=== PATIENT | male | born 1945 | race Caucasian/White ===

== ENCOUNTER 2018-08-16 05:45 | Outpatient (CLI) | payer MEDICARE, OTHER ==
[~2018-08-16] VITALS: Ht 177.8 cm; Wt 90.7 kg
== END 2018-08-16 12:12 | disposition home or self-care (01) ==
LOC: PREOP 05:45
PROVIDERS: ATTEND Surgery
DX: Z01.818 Encounter for other preprocedural examination (principal)

== ENCOUNTER 2018-08-18 07:50 | Day surgery (SDC) | payer MEDICARE, OTHER ==
[~2018-08-18] VITALS: Ht 177.8 cm; Wt 90.7 kg
--- OUTSIDE RECORDS SUMMARY | 2018-08-18 07:54 | XMS REPORT | CCD ---
Author Author Lou Hidalgo Organization [facility] Address [address] [place] [address] Phone Care Team Providers Care Drafter Civil (Cad) Name Role Phone PP Unavailable CCM Unavailable Summary Purpose Interface Exchange Insurance Providers Payer name Policy type / Coverage type Covered constitution party ID Effective Begin Date Effective End Date WPS Medicare Part B Medicare Part B [id number] Unknown Unknown [employer] Medicare Part B [id number] Unknown Unknown Family history Mother Diagnosis Age At Onset Breast cancer Unknown Arthritis Unknown Father Diagnosis Age At Onset Emphysema Unknown Arthritis Unknown Social History Social History Element Codes Description Effective Dates Marital status Unknown Kristyn 11/13/2015 Number of children Unknown 4 11/13/[address]: 826520963 Never smoker 11/13/[address]: 466123 Currently drinks alcohol 11/13/2015 Frequency of drinks SNOMED CT: 113878698 1-4 drinks per week 1 per week 11/13/2015 Allergies, Adverse Reactions, Alerts Substance Reaction Codes Entered Date Inactivated Date Status * NO KNOWN DRUG ALLERGIES Unknown 11/13/2015 No Inactive Date Active Past Medical History Illness Codes Condition Status Onset Date Resolved Date Ocular pain, right eye ICD-9: 379.91 ICD-10: H57.11 Active 08/02/2018 Unknown Trigeminal neuralgia ICD-9: 350.1 ICD-10: G50.0 Active 03/09/2018 Unknown Hypertension Unknown Active 04/08/2018 Unknown Essential (primary) hypertension ICD-9: 401.9 ICD-10: I10 Active 01/02/2016 Unknown 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 Active 08/18/2017 Unknown Headache ICD-9: 784.0 ICD-10: R51 Active 08/18/2017 Unknown Low back pain ICD-9: 724.2 ICD-10: M54.5 Active 01/02/2016 Unknown Radiculopathy, cervical region ICD-9: 723.4 ICD-10: M54.12 Active 11/12/2015 Unknown Encounter for general adult medical examination with abnormal findings ICD-9: V70.0 ICD-10: Z00.01 Active 03/26/2017 Unknown Allergic rhinitis, unspecified ICD-9: 477.9 ICD-10: J30.9 Active 11/12/2015 Unknown Mixed hyperlipidemia ICD-9: 272.2 ICD-10: E78.2 Active 11/12/2015 Unknown Problems Condition Codes Effective Dates Condition Status Ocular pain, right eye ICD-9: 379.91 ICD-10: H57.11 08/02/2018 Active Trigeminal neuralgia ICD-9: 350.1 ICD-10: G50.0 03/09/2018 Active Hypertension Unknown 04/08/2018 Active Essential (primary) hypertension ICD-9: 401.9 ICD-10: I10 01/02/2016 Active 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 08/18/2017 Active Headache ICD-9: 784.0 ICD-10: R51 08/18/2017 Active Low back pain ICD-9: 724.2 ICD-10: M54.5 01/02/2016 Active Radiculopathy, cervical region ICD-9: 723.4 ICD-10: M54.12 11/12/2015 Active Encounter for general adult medical examination with abnormal findings ICD-9: V70.0 ICD-10: Z00.01 03/26/2017 Active Allergic rhinitis, unspecified ICD-9: 477.9 ICD-10: J30.9 11/12/2015 Active Mixed hyperlipidemia ICD-9: 272.2 ICD-10: E78.2 11/12/2015 Active Medications Medication Codes Instructions Start Date Stop Date Status Fill Instructions prednisone 10 mg tablet RxNorm: 285165 4 Tablet(s) PO daily 08/201808/06/2018 Active 6,5,4,3,2,1 Tegretol 200 mg tablet RxNorm: 481395 1 Tablet(s) PO BID 201712/29/2018 Active Tegretol 200 mg tablet RxNorm: 483430 1 Tablet(s) PO BID 201708/01/2018 Inactive Tegretol 200 mg tablet RxNorm: 836135 1 Tablet(s) PO BID 201704/01/2018 Inactive valacyclovir 1 gram tablet RxNorm: 183653 1 Tablet(s) PO TID 10/22/2017 Inactive prednisone 10 mg tablet RxNorm: 022818 Tablet(s) PO 10/16/2017 03/08/2018 Inactive 6, 5,4,3,2,1 gabapentin 100 mg capsule RxNorm: 744813 1 Capsule(s) PO TID as needed for pain 10/16/2017 10/25/2017 Inactive prednisone 10 mg tablet RxNorm: 358257 Tablet(s) PO 09/08/2017 10/15/2017 Inactive 6, 5,4,3,2,1 prednisone 10 mg tablet RxNorm: 655721 Tablet(s) PO 08/19/2017 09/07/2017 Inactive 6, 5,4,3,2,1 Kenalog 40 mg/mL suspension for injection RxNorm: 4825826 1.5 Milliliter(s) Inj 08/18/2017 08/18/2017 Inactive Medication Administered Medication Codes Instructions Start Date Status Kenalog 40 mg/mL suspension for injection RxNorm: 5208834 1.5Milliliter 08/18/2017 No longer Active Immunizations Vaccine Codes Date Status Tetanus, Diptheria, Pertussis CVX: 113 completed Tetanus/Diptheria CVX: 113 07/22/2015 completed Assessments Condition Codes Effective Dates Trigeminal neuralgia ICD-10: G50.0 ICD-9: 350.1 08/02/2018 Ocular pain, right eye ICD-10: H57.11 ICD-9: 379.91 08/02/2018 Essential (primary) hypertension ICD-10: I10 ICD-9: 401.9 04/08/2018 Radiculopathy, cervical region ICD-10: M54.12 ICD-9: 723.4 10/16/2017 Low back pain ICD-10: M54.5 ICD-9: 724.2 10/16/2017 Headache ICD-10: R51 ICD-9: 784.0 10/16/2017 Atypical facial pain ICD-10: G50.1 ICD-9: 350.2 10/16/2017 Encounter for general adult medical examination with abnormal findings ICD-10: Z00.01 ICD-9: V70.0 03/26/2017 Allergic rhinitis, unspecified ICD-10: J30.9 ICD-9: 477.9 11/13/2015 Mixed hyperlipidemia ICD-10: E78.2 ICD-9: 272.2 11/13/2015 Reason For Visit Reason For Visit Effective Dates Notes vision change 08/02/2018 jaw pain 04/08/2018 jaw pain 03/09/2018 jaw pain 03/03/2018 headache 10/16/2017 headache 08/18/2017 Annual Medicare Wellness Exam 03/26/2017 blood pressure followup 01/03/2016 back pain 11/13/2015 Results Observation Observation Code Item Item Code Result Date Sed Rate Ord21 ESR 34 mm/hr 08/02/2018 C-Reactive Protein Qnt Crqnt CRP 0.6 mg/dl 08/02/2018 Tsh Ord6 TSH (3rd IS) 1.30 uIU/mL 10/16/2017 Sed Rate Ord21 ESR 38 mm/hr 10/16/2017 C-Reactive Protein Qnt Crqnt CRP 0.8 mg/dl 10/16/2017 Comp Metabolic Pwa987 NA 139 mEq/L 10/16/2017 Comp Metabolic Uqj233 K 4.2 mEq/L 10/16/2017 Comp Metabolic Bmm939 CL 106 mEq/L 10/16/2017 Comp Metabolic Vpc264 CO2 26.0 mEq/L 10/16/2017 Comp Metabolic Dak358 ANION GAP 11 10/16/2017 Comp Metabolic Jdu635 GLUCOSE 94 mg/dL 10/16/2017 Comp Metabolic Owr594 Creat 1.0 mg/dL 10/16/2017 Comp Metabolic Wvo809 eGFR 77 ml/min/1.73m2 10/16/2017 Comp Metabolic Ffn428 BUN 18 mg/dL 10/16/2017 Comp Metabolic Ist504 B/C Ratio 17.8 Ratio 10/16/2017 Comp Metabolic Rxe365 CALCIUM 9.7 mg/dL 10/16/2017 Comp Metabolic Ivx603 ALK PHOS 47 U/L 10/16/2017 Comp Metabolic Bjt225 AST(SGOT) 21 U/L 10/16/2017 Comp Metabolic Nlk765 ALT(SGPT) 9 U/L 10/16/2017 Comp Metabolic Mfm471 BILI T 1.1 mg/dL 10/16/2017 Comp Metabolic Uzu807 ALBUMIN 4.3 g/dL 10/16/2017 Comp Metabolic Jzj846 TPRO 7.2 g/dL 10/16/2017 Comp Metabolic Pky434 GLOB 2.9 g/dL 10/16/2017 Comp Metabolic Ter761 A/G Ratio 1.5 Ratio 10/16/2017 Comp Metabolic Ayq230 Osmo 279 mOsmo 10/16/2017 Cbc With Differential Ord2 WBC 7.99 K/ul 10/16/2017 Cbc With Differential Ord2 RBC 4.09 M/ul 10/16/2017 Cbc With Differential Ord2 HGB 13.3 g/dl 10/16/2017 Cbc With Differential Ord2 Neut% 55.5 % 10/16/2017 Cbc With Differential Ord2 HCT 40.2 % 10/16/2017 Cbc With Differential Ord2 MCV 98.3 fl 10/16/2017 Cbc With Differential Ord2 Lymph% 36.4 % 10/16/2017 Cbc With Differential Ord2 MCH 32.5 pg 10/16/2017 Cbc With Differential Ord2 [place]% 6.8 % 10/16/2017 Cbc With Differential Ord2 MCHC 33.1 pg 10/16/2017 Cbc With Differential Ord2 Eos% 0.9 % 10/16/2017 Cbc With Differential Ord2 PLT 262 K/ul 10/16/2017 Cbc With Differential Ord2 Baso% 0.4 % 10/16/2017 Cbc With Differential Ord2 RDW 15.3 % 10/16/2017 Cbc With Differential Ord2 Neut ABS# 4.44 K/ul 10/16/2017 Cbc With Differential Ord2 Lymph ABS# 2.91 K/ul 10/16/2017 Cbc With Differential Ord2 [place] ABS# 0.5 K/ul 10/16/2017 Cbc With Differential Ord2 Eos ABS# 0.1 K/ul 10/16/2017 Cbc With Differential Ord2 Baso ABS# 0.0 K/ul 10/16/2017 Sed Rate Ord21 ESR 32 mm/hr 08/18/2017 C-Reactive Protein Qnt Crqnt CRP 0.4 mg/dl 08/18/2017 Lipid Ord30 CHOL 166 mg/dL 03/26/2017 Lipid Ord30 HDL 38.0 mg/dl 03/26/2017 Lipid Ord30 TRIG 58 mg/dL 03/26/2017 Lipid Ord30 LDL 116 mg/dL 03/26/2017 Lipid Ord30 C/HDL 4.4 Ratio 03/26/2017 Comp Metabolic Svg700 NA 138 mEq/L 03/26/2017 Comp Metabolic Esq421 K 4.3 mEq/L 03/26/2017 Comp Metabolic Iht671 CL 106 mEq/L 03/26/2017 Comp Metabolic Fxk681 CO2 24.0 mEq/L 03/26/2017 Comp Metabolic Nti431 ANION GAP 12 03/26/2017 Comp Metabolic Jyq717 GLUCOSE 93 mg/dL 03/26/2017 Comp Metabolic Zsv325 Creat 1.0 mg/dL 03/26/2017 Comp Metabolic Pmc509 eGFR 77 ml/min/1.73m2 03/26/2017 Comp Metabolic Oij969 BUN 17 mg/dL 03/26/2017 Comp Metabolic Fca979 B/C Ratio 16.8 Ratio 03/26/2017 Comp Metabolic Gwk936 CALCIUM 9.4 mg/dL 03/26/2017 Comp Metabolic Dce095 ALK PHOS 46 U/L 03/26/2017 Comp Metabolic Laq556 AST(SGOT) 21 U/L 03/26/2017 Comp Metabolic Imf950 ALT(SGPT) 11 U/L 03/26/2017 Comp Metabolic Ydn326 BILI T 1.2 mg/dL 03/26/2017 Comp Metabolic Xhy743 ALBUMIN 4.2 g/dL 03/26/2017 Comp Metabolic Vfu657 TPRO 7.4 g/dL 03/26/2017 Comp Metabolic Tba656 GLOB 3.2 g/dL 03/26/2017 Comp Metabolic Bge039 A/G Ratio 1.3 Ratio 03/26/2017 Comp Metabolic Nou224 Osmo 277 mOsmo 03/26/2017 Tsh Ord6 hTSH II 1.02 uIU/mL 03/26/2017 Cbc With Differential Ord2 WBC 6.80 K/ul 03/26/2017 Cbc With Differential Ord2 RBC 4.31 M/ul 03/26/2017 Cbc With Differential Ord2 HGB 13.8 g/dl 03/26/2017 Cbc With Differential Ord2 Neut% 52.8 % 03/26/2017 Cbc With Differential Ord2 HCT 42.1 % 03/26/2017 Cbc With Differential Ord2 Lymph% 37.2 % 03/26/2017 Cbc With Differential Ord2 MCV 97.7 fl 03/26/2017 Cbc With Differential Ord2 [place]% 8.5 % 03/26/2017 Cbc With Differential Ord2 MCH 32.0 pg 03/26/2017 Cbc With Differential Ord2 Eos% 1.2 % 03/26/2017 Cbc With Differential Ord2 MCHC 32.8 pg 03/26/2017 Cbc With Differential Ord2 Baso% 0.3 % 03/26/2017 Cbc With Differential Ord2 PLT 222 K/ul 03/26/2017 Cbc With Differential Ord2 RDW 14.9 % 03/26/2017 Cbc With Differential Ord2 Neut ABS# 3.59 K/ul 03/26/2017 Cbc With Differential Ord2 Lymph ABS# 2.53 K/ul 03/26/2017 Cbc With Differential Ord2 [place] ABS# 0.6 K/ul 03/26/2017 Cbc With Differential Ord2 Eos ABS# 0.1 K/ul 03/26/2017 Cbc With Differential Ord2 Baso ABS# 0.0 K/ul 03/26/2017 Cbc With Differential Ord2 WBC 7.81 K/ul 11/14/2015 Cbc With Differential Ord2 RBC 4.48 M/ul 11/14/2015 Cbc With Differential Ord2 HGB 13.7 g/dl 11/14/2015 Cbc With Differential Ord2 HCT 41.8 % 11/14/2015 Cbc With Differential Ord2 Neut% 42.7 % 11/14/2015 Cbc With Differential Ord2 Lymph% 47.5 % 11/14/2015 Cbc With Differential Ord2 MCV 93.3 fl 11/14/2015 Cbc With Differential Ord2 MCH 30.6 pg 11/14/2015 Cbc With Differential Ord2 [place]% 7.0 % 11/14/2015 Cbc With Differential Ord2 MCHC 32.8 pg 11/14/2015 Cbc With Differential Ord2 Eos% 2.4 % 11/14/2015 Cbc With Differential Ord2 PLT 227 K/ul 11/14/2015 Cbc With Differential Ord2 Baso% 0.4 % 11/14/2015 Cbc With Differential Ord2 RDW 14.9 % 11/14/2015 Cbc With Differential Ord2 Neut ABS# 3.33 K/ul 11/14/2015 Cbc With Differential Ord2 Lymph ABS# 3.71 K/ul 11/14/2015 Cbc With Differential Ord2 [place] ABS# 0.6 K/ul 11/14/2015 Cbc With Differential Ord2 Eos ABS# 0.2 K/ul 11/14/2015 Cbc With Differential Ord2 Baso ABS# 0.0 K/ul 11/14/2015 Cbc With Differential Ord2 New Analyzer Notice Please note new ref ranges starting 10-03-2015 due to implemntation of new five part differential hematolgy analyzer. 11/14/2015 Comp Metabolic Qvt311 NA 138 mEq/L 11/14/2015 Comp Metabolic Nyf883 K 4.3 mEq/L 11/14/2015 Comp Metabolic Cjd435 CL 105 mEq/L 11/14/2015 Comp Metabolic Plw256 CO2 23.0 mEq/L 11/14/2015 Comp Metabolic Uop101 ANION GAP 14 11/14/2015 Comp Metabolic Jkv243 GLUCOSE 93 mg/dL 11/14/2015 Comp Metabolic Sjm068 Creat 1.0 mg/dL 11/14/2015 Comp Metabolic Jpq783 eGFR 78 ml/min/1.73m2 11/14/2015 Comp Metabolic Njt435 BUN 12 mg/dL 11/14/2015 Comp Metabolic Hkh733 B/C Ratio 12.0 Ratio 11/14/2015 Comp Metabolic Xqd498 CALCIUM 9.3 mg/dL 11/14/2015 Comp Metabolic Ndq058 ALK PHOS 48 U/L 11/14/2015 Comp Metabolic Asz649 AST(SGOT) 18 U/L 11/14/2015 Comp Metabolic Hvg554 ALT(SGPT) 8 U/L 11/14/2015 Comp Metabolic Ord631 BILI T 1.1 mg/dL 11/14/2015 Comp Metabolic Aus182 ALBUMIN 4.2 g/dL 11/14/2015 Comp Metabolic Tjh027 TPRO 7.0 g/dL 11/14/2015 Comp Metabolic Pfw698 GLOB 2.9 g/dL 11/14/2015 Comp Metabolic Oyr090 A/G Ratio 1.5 Ratio 11/14/2015 Comp Metabolic Ntj205 Osmo 275 mOsmo 11/14/2015 Lipid Ord30 CHOL 173 mg/dL 11/14/2015 Lipid Ord30 HDL 37.0 mg/dl 11/14/2015 Lipid Ord30 TRIG 65 mg/dL 11/14/2015 Lipid Ord30 LDL 123 mg/dL 11/14/2015 Lipid Ord30 C/HDL 4.7 Ratio 11/14/2015 Tsh Ord6 hTSH II 1.10 uIU/mL 11/14/2015 Total Psa Ord10 PSA 1.48 ng/mL 11/14/2015 Review of Systems System Result Effective Dates Constitutional No recent illness 2017 Constitutional No chills 08/02/2018 Constitutional No diaphoresis 08/02/2018 Constitutional No fever 08/02/2018 Eyes No blindness 08/02/2018 Ears/Nose/Throat/Neck facial pain 2017 Ears/Nose/Throat/Neck No facial weakness 08/02/2018 Ears/Nose/Throat/Neck No headache 2017 Ears/Nose/Throat/Neck No nasal allergies 08/02/2018 Ears/Nose/Throat/Neck No nasal discharge 08/02/2018 Cardiovascular No chest pain/pressure 08/2018 Cardiovascular No dyspnea 08/02/2018 Respiratory No chest congestion 2017 Respiratory No cough 08/02/2018 Gastrointestinal No abdominal pain 2017 Gastrointestinal No nausea 08/02/2018 Gastrointestinal No vomiting 08/02/2018 Musculoskeletal joint complaint 2017 Musculoskeletal neck pain 08/02/2018 Dermatologic No rash 08/02/2018 Neurologic No alteration of consciousness 08/02/2018 Neurologic No dizziness 08/02/2018 Neurologic No mental status change 2017 Neurologic No vision change 08/02/2018 Psychiatric No anxiety 08/02/2018 Constitutional No anorexia 04/08/2018 Constitutional No night sweats 2017 Constitutional No chills 04/08/2018 Constitutional No diaphoresis 04/08/2018 Constitutional fatigue 04/08/2018 Constitutional No fever 04/08/2018 Constitutional No insomnia 04/08/2018 Constitutional No malaise 04/08/2018 Eyes No eye discharge 04/08/2018 Eyes No eye erythema 04/08/2018 Ears/Nose/Throat/Neck dizziness 2017 Ears/Nose/Throat/Neck headache 2017 Cardiovascular No chest pain/pressure Respiratory No cough 04/08/2018 Gastrointestinal No nausea 04/08/2018 Gastrointestinal No vomiting 04/08/2018 Dermatologic No rash 04/08/2018 Dermatologic No sores 04/08/2018 Neurologic No aphasia 04/08/2018 Neurologic pain, facial 04/08/2018 Constitutional recent illness 03/09/2018 Constitutional No anorexia 03/09/2018 Constitutional No night sweats 2017 Constitutional No chills 03/09/2018 Constitutional No diaphoresis 03/09/2018 Constitutional fatigue 03/09/2018 Constitutional No fever 03/09/2018 Constitutional No insomnia 03/09/2018 Constitutional No malaise 03/09/2018 Constitutional No weight loss 03/09/2018 Constitutional No weight gain 03/09/2018 Eyes No eye discharge 03/09/2018 Eyes No eye erythema 03/09/2018 Ears/Nose/Throat/Neck dizziness 2017 Ears/Nose/Throat/Neck headache 2017 Cardiovascular No chest pain/pressure Respiratory No cough 03/09/2018 Gastrointestinal No vomiting 03/09/2018 Gastrointestinal No nausea 03/09/2018 Dermatologic No rash 03/09/2018 Dermatologic No sores 03/09/2018 Neurologic No aphasia 03/09/2018 Neurologic pain, facial 03/09/2018 Constitutional recent illness 03/03/2018 Constitutional No chills 03/03/2018 Constitutional No diaphoresis 03/03/2018 Constitutional fatigue 03/03/2018 Constitutional No fever 03/03/2018 Eyes No eye discharge 03/03/2018 Eyes No eye erythema 03/03/2018 Ears/Nose/Throat/Neck headache 2017 Cardiovascular No chest pain/pressure Respiratory No cough 03/03/2018 Gastrointestinal No nausea 03/03/2018 Gastrointestinal No vomiting 03/03/2018 Dermatologic No rash 03/03/2018 Dermatologic No sores 03/03/2018 Neurologic No aphasia 03/03/2018 Neurologic pain, facial 03/03/2018 Ears/Nose/Throat/Neck facial pain 2017 Ears/Nose/Throat/Neck No nasal discharge 03/03/2018 Ears/Nose/Throat/Neck No nasal allergies 03/03/2018 Ears/Nose/Throat/Neck No sore throat Ears/Nose/Throat/Neck No sinus congestion 03/03/2018 Neurologic No alteration of consciousness 03/03/2018 Neurologic No mental status change 2017 Constitutional No recent illness 2017 Constitutional No chills 10/16/2017 Constitutional No diaphoresis 10/16/2017 Constitutional No fever 10/16/2017 Eyes No eye erythema 10/16/2017 Ears/Nose/Throat/Neck facial pain 2017 Ears/Nose/Throat/Neck No facial weakness 10/16/2017 Ears/Nose/Throat/Neck No headache 2017 Ears/Nose/Throat/Neck No nasal allergies 10/16/2017 Ears/Nose/Throat/Neck No nasal discharge 10/16/2017 Cardiovascular No chest pain/pressure Cardiovascular No dyspnea 10/16/2017 Respiratory No chest congestion 2017 Respiratory No cough 10/16/2017 Gastrointestinal No abdominal pain 2017 Gastrointestinal No nausea 10/16/2017 Gastrointestinal No vomiting 10/16/2017 Musculoskeletal joint complaint 2017 Musculoskeletal neck pain 10/16/2017 Dermatologic No rash 10/16/2017 Neurologic No alteration of consciousness 10/16/2017 Neurologic No dizziness 10/16/2017 Neurologic No mental status change 2017 Neurologic No vision change 10/16/2017 Constitutional No recent illness 2016 Constitutional No chills 08/18/2017 Constitutional No diaphoresis 08/18/2017 Constitutional No fever 08/18/2017 Eyes No eye erythema 08/18/2017 Ears/Nose/Throat/Neck No headache 2016 Ears/Nose/Throat/Neck No nasal allergies 08/18/2017 Ears/Nose/Throat/Neck No nasal discharge 08/18/2017 Ears/Nose/Throat/Neck No facial weakness 08/18/2017 Ears/Nose/Throat/Neck facial pain 2016 Cardiovascular No chest pain/pressure Cardiovascular No dyspnea 08/18/2017 Respiratory No cough 08/18/2017 Respiratory No chest congestion 2016 Gastrointestinal No abdominal pain 2016 Gastrointestinal No vomiting 08/18/2017 Gastrointestinal No nausea 08/18/2017 Musculoskeletal joint complaint 2016 Musculoskeletal neck pain 08/18/2017 Dermatologic No rash 08/18/2017 Neurologic No alteration of consciousness 08/18/2017 Neurologic No mental status change 2016 Neurologic No dizziness 08/18/2017 Neurologic No vision change 08/18/2017 Constitutional No recent illness 2016 Constitutional No fever 03/26/2017 Eyes No eye erythema 03/26/2017 Ears/Nose/Throat/Neck No nasal discharge 03/26/2017 Cardiovascular No chest pain/pressure 02/2017 Cardiovascular No dyspnea 03/26/2017 Respiratory No dyspnea 03/26/2017 Neurologic No alteration of consciousness 03/26/2017 Neurologic No mental status change 2016 Constitutional No weight gain 01/03/2016 Constitutional No weight loss 01/03/2016 Constitutional No malaise 01/03/2016 Constitutional No insomnia 01/03/2016 Constitutional No fever 01/03/2016 Constitutional No fatigue 01/03/2016 Constitutional No diaphoresis 01/03/2016 Constitutional No chills 01/03/2016 Constitutional No night sweats 2015 Constitutional No anorexia 01/03/2016 Constitutional No recent illness 2015 Eyes No eye discharge 01/03/2016 Eyes No eye erythema 01/03/2016 Ears/Nose/Throat/Neck No dizziness 2015 Cardiovascular No chest pain/pressure Cardiovascular No dyspnea 01/03/2016 Cardiovascular No edema 01/03/2016 Respiratory No cough 01/03/2016 Gastrointestinal No abdominal pain 2015 Gastrointestinal No constipation 2015 Gastrointestinal No diarrhea 01/03/2016 Genitourinary/Nephrology No dysuria 01/02 Musculoskeletal joint complaint 2015 Musculoskeletal back pain 01/03/2016 Dermatologic No rash 01/03/2016 Neurologic No alteration of consciousness 01/03/2016 Ears/Nose/Throat/Neck nasal allergies Ears/Nose/Throat/Neck nasal discharge Genitourinary/Nephrology No dysuria 11/13 Genitourinary/Nephrology No polyuria Genitourinary/Nephrology urinary retention/hesitancy 11/13/2015 Musculoskeletal joint complaint 2015 Musculoskeletal back pain 11/13/2015 Musculoskeletal No muscle weakness 2015 Musculoskeletal myalgias 11/13/2015 Gastrointestinal No diarrhea 11/13/2015 Gastrointestinal No constipation 2015 Respiratory No cough 11/13/2015 Respiratory No cigarette smoking 2015 Respiratory No chest congestion 2015 Respiratory No chest tightness 2015 Cardiovascular No chest pain/pressure Dermatologic No sores 11/13/2015 Dermatologic No rash 11/13/2015 Neurologic paresthesia 11/13/2015 Psychiatric No anxiety 11/13/2015 Psychiatric No depression 11/13/2015 Constitutional No recent illness 2015 Constitutional No anorexia 11/13/2015 Constitutional No night sweats 2015 Constitutional No chills 11/13/2015 Constitutional No diaphoresis 11/13/2015 Constitutional No fatigue 11/13/2015 Constitutional No fever 11/13/2015 Constitutional No insomnia 11/13/2015 Constitutional No malaise 11/13/2015 Constitutional No weight loss 11/13/2015 Constitutional No weight gain 11/13/2015 Constitutional No obesity 11/13/2015 Eyes No vision change 11/13/2015 Ears/Nose/Throat/Neck nasal discharge Ears/Nose/Throat/Neck nasal allergies Ears/Nose/Throat/Neck No headache 2015 Ears/Nose/Throat/Neck No dizziness 2015 Ears/Nose/Throat/Neck No postnasal drip 11/13/2015 Ears/Nose/Throat/Neck No sinus congestion 11/13/2015 Ears/Nose/Throat/Neck No sore throat Ears/Nose/Throat/Neck No otalgia 2015 Ears/Nose/Throat/Neck No otitis media Neurologic pain, back 11/13/2015 Neurologic No headache 11/13/2015 Neurologic No memory loss 11/13/2015 Neurologic No alteration of consciousness 11/13/2015 Neurologic No dyskinesia or tremor 2015 Neurologic spasms/spasticity 11/13/2015 Physical Exam Exam Name System Name Item Name Status Result Effective Dates Notes Full Exam - General 1994 Constitutional general appearance Overall: well developed 08/02/2018 None Full Exam - General 1994 Constitutional general appearance Overall: in no acute distress 08/02/2018 None Full Exam - General 1994 Constitutional general appearance Overall: well nourished 08/02/2018 None Full Exam - General 1994 Eyes conjunctiva /eyelids Overall: conjunctiva clear 08/02/2018 None Full Exam - General 1994 Eyes conjunctiva /eyelids Overall: cornea clear 08/02/2018 None Full Exam - General 1994 Eyes conjunctiva /eyelids Overall: eyelids normal 08/02/2018 None Full Exam - General 1994 Eyes pupils and irises Overall: pupils equal, round, reactive to light and accomodation 08/02/2018 None Full Exam - General 1994 Ears/Nose/Throat otoscopic exam Overall: external auditory canals clear 08/02/2018 None Full Exam - General 1994 Ears/Nose/Throat otoscopic exam Overall: tympanic membranes clear 08/02/2018 None Full Exam - General 1994 Ears/Nose/Throat lips/teeth/gingiva Overall: benign lips 08/02/2018 None Full Exam - General 1994 Ears/Nose/Throat oral cavity/pharynx/larynx Overall: oral mucosa clear 08/02/2018 None Full Exam - General 1994 Ears/Nose/Throat oral cavity/pharynx/larynx Overall: oropharyngeal mucosa clear 08/02/2018 None Full Exam - General 1994 Respiratory auscultation Overall: breath sounds clear bilaterally 08/02/2018 None Full Exam - General 1994 Respiratory respiratory effort/rhythm Overall: no retractions 08/02/2018 None Full Exam - General 1994 Respiratory respiratory effort/rhythm Overall: normal rate 08/02/2018 None Full Exam - General 1994 Cardiovascular auscultation of heart Overall: regular rate 08/02/2018 None Full Exam - General 1994 Cardiovascular auscultation of heart Overall: normal heart sounds 08/02/2018 None Full Exam - General 1994 Lymphatic neck nodes Overall: anterior cervical chain benign 08/02/2018 None Full Exam - General 1994 Lymphatic neck nodes Overall: posterior cervical chain benign 08/02/2018 None Full Exam - General 1994 Musculoskeletal gait and station Overall: normal gait 08/02/2018 None Full Exam - General 1994 Musculoskeletal gait and station Overall: normal station 08/02/2018 None Full Exam - General 1994 Musculoskeletal head and neck Overall: head atraumatic 08/02/2018 None Full Exam - General 1994 Neurologic gait Overall: no ataxia, no unsteadiness 08/02/2018 None Full Exam - General 1994 Neurologic coordination Overall: no dysdiadochokinesis, no dysmetria 08/02/2018 None Full Exam - General 1994 Neurologic cranial nerves Overall: crainial nerves 2 - 12 grossly intact 08/02/2018 None Full Exam - General 1994 Neurologic motor Overall: normal bulk, tone 08/02/2018 None Full Exam - General 1994 Psychiatric orientation/consciousness Overall: oriented to person, place and time 08/02/2018 None Full Exam - General 1994 Psychiatric mood and affect Overall: normal mood and affect 08/02/2018 None Full Exam - General 1994 Psychiatric appearance Overall: well-groomed, good eye contact 08/02/2018 None Full Exam - General 1994 Psychiatric speech Overall: normal quality, no aphasia 08/02/2018 None Full Exam - General 1994 Psychiatric speech Overall: normal quality, quantity, rate 08/02/2018 None Full Exam - General 1994 Psychiatric thought Overall: normal form and content 08/02/2018 None Full Exam - General 1994 Psychiatric cognition/memory Overall: immediate, recent, remote memory intact 08/02/2018 None Full Exam - General 1994 Psychiatric cognition/memory Overall: normal concentration, intelligence 08/02/2018 None Full Exam - General 1994 Psychiatric judgment/insight Overall: judgment and insight intact 08/02/2018 None Full Exam - General 1994 Integument inspection of skin Location: scalp 08/02/2018 indentations from eyeglasses above ear near quaker Full Exam - General 1994 Constitutional general appearance Overall: well developed 04/08/2018 None Full Exam - General 1994 Constitutional general appearance Overall: in no acute distress 04/08/2018 None Full Exam - General 1994 Constitutional general appearance Overall: well nourished 04/08/2018 None Full Exam - General 1994 Eyes conjunctiva /eyelids Overall: conjunctiva clear 04/08/2018 None Full Exam - General 1994 Eyes conjunctiva /eyelids Overall: cornea clear 04/08/2018 None Full Exam - General 1994 Eyes conjunctiva /eyelids Overall: eyelids normal 04/08/2018 None Full Exam - General 1994 Eyes pupils and irises Overall: pupils equal, round, reactive to light and accomodation 04/08/2018 None Full Exam - General 1994 Ears/Nose/Throat otoscopic exam Overall: external auditory canals clear 04/08/2018 None Full Exam - General 1994 Ears/Nose/Throat otoscopic exam Overall: tympanic membranes clear 04/08/2018 None Full Exam - General 1994 Ears/Nose/Throat lips/teeth/gingiva Overall: benign lips 04/08/2018 None Full Exam - General 1994 Ears/Nose/Throat oral cavity/pharynx/larynx Overall: oral mucosa clear 04/08/2018 None Full Exam - General 1994 Ears/Nose/Throat oral cavity/pharynx/larynx Overall: oropharyngeal mucosa clear 04/08/2018 None Full Exam - General 1994 Respiratory auscultation Overall: breath sounds clear bilaterally 04/08/2018 None Full Exam - General 1994 Respiratory respiratory effort/rhythm Overall: no retractions 04/08/2018 None Full Exam - General 1994 Respiratory respiratory effort/rhythm Overall: normal rate 04/08/2018 None Full Exam - General 1994 Cardiovascular auscultation of heart Overall: regular rate 04/08/2018 None Full Exam - General 1994 Cardiovascular auscultation of heart Overall: normal heart sounds 04/08/2018 None Full Exam - General 1994 Musculoskeletal gait and station Overall: normal gait 04/08/2018 None Full Exam - General 1994 Musculoskeletal gait and station Overall: normal station 04/08/2018 None Full Exam - General 1994 Musculoskeletal head and neck Overall: head atraumatic 04/08/2018 None Full Exam - General 1994 Integument inspection of skin Overall: no rash, lesions 04/08/2018 None Full Exam - General 1994 Neurologic gait Overall: no ataxia, no unsteadiness 04/08/2018 None Full Exam - General 1994 Neurologic cranial nerves Overall: crainial nerves 2 - 12 grossly intact 04/08/2018 None Full Exam - General 1994 Psychiatric orientation/consciousness Overall: oriented to person, place and time 04/08/2018 None Full Exam - General 1994 Psychiatric mood and affect Overall: normal mood and affect 04/08/2018 None Full Exam - General 1994 Psychiatric appearance Overall: well-groomed, good eye contact 04/08/2018 None Full Exam - General 1994 Psychiatric speech Overall: normal quality, no aphasia 04/08/2018 None Full Exam - General 1994 Psychiatric speech Overall: normal quality, quantity, rate 04/08/2018 None Full Exam - General 1994 Psychiatric thought Overall: normal form and content 04/08/2018 None Full Exam - General 1994 Psychiatric cognition/memory Overall: immediate, recent, remote memory intact 04/08/2018 None Full Exam - General 1994 Psychiatric cognition/memory Overall: normal concentration, intelligence 04/08/2018 None Full Exam - General 1994 Psychiatric judgment/insight Overall: judgment and insight intact 04/08/2018 None Full Exam - General 1994 Constitutional general appearance Overall: well developed 03/09/2018 None Full Exam - General 1994 Constitutional general appearance Overall: in no acute distress 03/09/2018 None Full Exam - General 1994 Constitutional general appearance Overall: well nourished 03/09/2018 None Full Exam - General 1994 Eyes conjunctiva /eyelids Overall: conjunctiva clear 03/09/2018 None Full Exam - General 1994 Eyes conjunctiva /eyelids Overall: cornea clear 03/09/2018 None Full Exam - General 1994 Eyes conjunctiva /eyelids Overall: eyelids normal 03/09/2018 None Full Exam - General 1994 Eyes pupils and irises Overall: pupils equal, round, reactive to light and accomodation 03/09/2018 None Full Exam - General 1994 Ears/Nose/Throat otoscopic exam Overall: external auditory canals clear 03/09/2018 None Full Exam - General 1994 Ears/Nose/Throat otoscopic exam Overall: tympanic membranes clear 03/09/2018 None Full Exam - General 1994 Ears/Nose/Throat lips/teeth/gingiva Overall: benign lips 03/09/2018 None Full Exam - General 1994 Ears/Nose/Throat oral cavity/pharynx/larynx Overall: oral mucosa clear 03/09/2018 None Full Exam - General 1994 Ears/Nose/Throat oral cavity/pharynx/larynx Overall: oropharyngeal mucosa clear 03/09/2018 None Full Exam - General 1994 Respiratory auscultation Overall: breath sounds clear bilaterally 03/09/2018 None Full Exam - General 1994 Respiratory respiratory effort/rhythm Overall: no retractions 03/09/2018 None Full Exam - General 1994 Respiratory respiratory effort/rhythm Overall: normal rate 03/09/2018 None Full Exam - General 1994 Cardiovascular auscultation of heart Overall: regular rate 03/09/2018 None Full Exam - General 1994 Cardiovascular auscultation of heart Overall: normal heart sounds 03/09/2018 None Full Exam - General 1994 Lymphatic neck nodes Overall: anterior cervical chain benign 03/09/2018 None Full Exam - General 1994 Lymphatic neck nodes Overall: posterior cervical chain benign 03/09/2018 None Full Exam - General 1994 Musculoskeletal gait and station Overall: normal gait 03/09/2018 None Full Exam - General 1994 Musculoskeletal gait and station Overall: normal station 03/09/2018 None Full Exam - General 1994 Musculoskeletal head and neck Overall: head atraumatic 03/09/2018 None Full Exam - General 1994 Integument inspection of skin Overall: no rash, lesions 03/09/2018 None Full Exam - General 1994 Neurologic gait Overall: no ataxia, no unsteadiness 03/09/2018 None Full Exam - General 1994 Neurologic coordination Overall: no dysdiadochokinesis, no dysmetria 03/09/2018 None Full Exam - General 1994 Neurologic cranial nerves Overall: crainial nerves 2 - 12 grossly intact 03/09/2018 None Full Exam - General 1994 Neurologic motor Overall: normal bulk, tone 03/09/2018 None Full Exam - General 1994 Psychiatric orientation/consciousness Overall: oriented to person, place and time 03/09/2018 None Full Exam - General 1994 Psychiatric mood and affect Overall: normal mood and affect 03/09/2018 None Full Exam - General 1994 Psychiatric appearance Overall: well-groomed, good eye contact 03/09/2018 None Full Exam - General 1994 Psychiatric speech Overall: normal quality, no aphasia 03/09/2018 None Full Exam - General 1994 Psychiatric speech Overall: normal quality, quantity, rate 03/09/2018 None Full Exam - General 1994 Psychiatric thought Overall: normal form and content 03/09/2018 None Full Exam - General 1994 Psychiatric cognition/memory Overall: immediate, recent, remote memory intact 03/09/2018 None Full Exam - General 1994 Psychiatric cognition/memory Overall: normal concentration, intelligence 03/09/2018 None Full Exam - General 1994 Psychiatric judgment/insight Overall: judgment and insight intact 03/09/2018 None Full Exam - General 1994 Constitutional general appearance Overall: well developed 03/03/2018 None Full Exam - General 1994 Constitutional general appearance Overall: in no acute distress 03/03/2018 None Full Exam - General 1994 Constitutional general appearance Overall: well nourished 03/03/2018 None Full Exam - General 1994 Eyes conjunctiva /eyelids Overall: conjunctiva clear 03/03/2018 None Full Exam - General 1994 Eyes conjunctiva /eyelids Overall: cornea clear 03/03/2018 None Full Exam - General 1994 Eyes conjunctiva /eyelids Overall: eyelids normal 03/03/2018 None Full Exam - General 1994 Eyes pupils and irises Overall: pupils equal, round, reactive to light and accomodation 03/03/2018 None Full Exam - General 1994 Ears/Nose/Throat otoscopic exam Overall: external auditory canals clear 03/03/2018 None Full Exam - General 1994 Ears/Nose/Throat otoscopic exam Overall: tympanic membranes clear 03/03/2018 None Full Exam - General 1994 Ears/Nose/Throat lips/teeth/gingiva Overall: benign lips 03/03/2018 None Full Exam - General 1994 Ears/Nose/Throat oral cavity/pharynx/larynx Overall: oral mucosa clear 03/03/2018 None Full Exam - General 1994 Ears/Nose/Throat oral cavity/pharynx/larynx Overall: oropharyngeal mucosa clear 03/03/2018 None Full Exam - General 1994 Respiratory auscultation Overall: breath sounds clear bilaterally 03/03/2018 None Full Exam - General 1994 Respiratory respiratory effort/rhythm Overall: no retractions 03/03/2018 None Full Exam - General 1994 Respiratory respiratory effort/rhythm Overall: normal rate 03/03/2018 None Full Exam - General 1994 Cardiovascular auscultation of heart Overall: regular rate 03/03/2018 None Full Exam - General 1994 Cardiovascular auscultation of heart Overall: normal heart sounds 03/03/2018 None Full Exam - General 1994 Lymphatic neck nodes Overall: anterior cervical chain benign 03/03/2018 None Full Exam - General 1994 Lymphatic neck nodes Overall: posterior cervical chain benign 03/03/2018 None Full Exam - General 1994 Musculoskeletal gait and station Overall: normal gait 03/03/2018 None Full Exam - General 1994 Musculoskeletal gait and station Overall: normal station 03/03/2018 None Full Exam - General 1994 Musculoskeletal head and neck Overall: head atraumatic 03/03/2018 None Full Exam - General 1994 Integument inspection of skin Overall: no rash, lesions 03/03/2018 None Full Exam - General 1994 Neurologic gait Overall: no ataxia, no unsteadiness 03/03/2018 None Full Exam - General 1994 Neurologic coordination Overall: no dysdiadochokinesis, no dysmetria 03/03/2018 None Full Exam - General 1994 Neurologic cranial nerves Overall: crainial nerves 2 - 12 grossly intact 03/03/2018 None Full Exam - General 1994 Neurologic motor Overall: normal bulk, tone 03/03/2018 None Full Exam - General 1994 Psychiatric orientation/consciousness Overall: oriented to person, place and time 03/03/2018 None Full Exam - General 1994 Psychiatric mood and affect Overall: normal mood and affect 03/03/2018 None Full Exam - General 1994 Psychiatric appearance Overall: well-groomed, good eye contact 03/03/2018 None Full Exam - General 1994 Psychiatric speech Overall: normal quality, no aphasia 03/03/2018 None Full Exam - General 1994 Psychiatric speech Overall: normal quality, quantity, rate 03/03/2018 None Full Exam - General 1994 Constitutional general appearance Overall: well developed 10/16/2017 None Full Exam - General 1994 Constitutional general appearance Overall: in no acute distress 10/16/2017 None Full Exam - General 1994 Constitutional general appearance Overall: well nourished 10/16/2017 None Full Exam - General 1994 Eyes conjunctiva /eyelids Overall: conjunctiva clear 10/16/2017 None Full Exam - General 1994 Eyes conjunctiva /eyelids Overall: cornea clear 10/16/2017 None Full Exam - General 1994 Eyes conjunctiva /eyelids Overall: eyelids normal 10/16/2017 None Full Exam - General 1994 Eyes pupils and irises Overall: pupils equal, round, reactive to light and accomodation 10/16/2017 None Full Exam - General 1994 Ears/Nose/Throat otoscopic exam Overall: external auditory canals clear 10/16/2017 None Full Exam - General 1994 Ears/Nose/Throat otoscopic exam Overall: tympanic membranes clear 10/16/2017 None Full Exam - General 1994 Ears/Nose/Throat lips/teeth/gingiva Overall: benign lips 10/16/2017 None Full Exam - General 1994 Ears/Nose/Throat oral cavity/pharynx/larynx Overall: oral mucosa clear 10/16/2017 None Full Exam - General 1994 Ears/Nose/Throat oral cavity/pharynx/larynx Overall: oropharyngeal mucosa clear 10/16/2017 None Full Exam - General 1994 Respiratory auscultation Overall: breath sounds clear bilaterally 10/16/2017 None Full Exam - General 1994 Respiratory respiratory effort/rhythm Overall: no retractions 10/16/2017 None Full Exam - General 1994 Respiratory respiratory effort/rhythm Overall: normal rate 10/16/2017 None Full Exam - General 1994 Cardiovascular auscultation of heart Overall: regular rate 10/16/2017 None Full Exam - General 1994 Cardiovascular auscultation of heart Overall: normal heart sounds 10/16/2017 None Full Exam - General 1994 Lymphatic neck nodes Overall: anterior cervical chain benign 10/16/2017 None Full Exam - General 1994 Lymphatic neck nodes Overall: posterior cervical chain benign 10/16/2017 None Full Exam - General 1994 Musculoskeletal gait and station Overall: normal gait 10/16/2017 None Full Exam - General 1994 Musculoskeletal gait and station Overall: normal station 10/16/2017 None Full Exam - General 1994 Musculoskeletal head and neck Overall: head atraumatic 10/16/2017 None Full Exam - General 1994 Integument inspection of skin Overall: no rash, lesions 10/16/2017 None Full Exam - General 1994 Neurologic gait Overall: no ataxia, no unsteadiness 10/16/2017 None Full Exam - General 1994 Neurologic coordination Overall: no dysdiadochokinesis, no dysmetria 10/16/2017 None Full Exam - General 1994 Neurologic cranial nerves Overall: crainial nerves 2 - 12 grossly intact 10/16/2017 None Full Exam - General 1994 Neurologic motor Overall: normal bulk, tone 10/16/2017 None Full Exam - General 1994 Psychiatric orientation/consciousness Overall: oriented to person, place and time 10/16/2017 None Full Exam - General 1994 Psychiatric mood and affect Overall: normal mood and affect 10/16/2017 None Full Exam - General 1994 Psychiatric appearance Overall: well-groomed, good eye contact 10/16/2017 None Full Exam - General 1994 Psychiatric speech Overall: normal quality, no aphasia 10/16/2017 None Full Exam - General 1994 Psychiatric speech Overall: normal quality, quantity, rate 10/16/2017 None Full Exam - General 1994 Psychiatric thought Overall: normal form and content 10/16/2017 None Full Exam - General 1994 Psychiatric cognition/memory Overall: immediate, recent, remote memory intact 10/16/2017 None Full Exam - General 1994 Psychiatric cognition/memory Overall: normal concentration, intelligence 10/16/2017 None Full Exam - General 1994 Psychiatric judgment/insight Overall: judgment and insight intact 10/16/2017 None Full Exam - General 1994 Constitutional general appearance Overall: well developed 08/18/2017 None Full Exam - General 1994 Constitutional general appearance Overall: well nourished 08/18/2017 None Full Exam - General 1994 Constitutional general appearance Overall: in no acute distress 08/18/2017 None Full Exam - General 1994 Eyes conjunctiva /eyelids Overall: conjunctiva clear 08/18/2017 None Full Exam - General 1994 Eyes conjunctiva /eyelids Overall: cornea clear 08/18/2017 None Full Exam - General 1994 Eyes conjunctiva /eyelids Overall: eyelids normal 08/18/2017 None Full Exam - General 1994 Eyes pupils and irises Overall: pupils equal, round, reactive to light and accomodation 08/18/2017 None Full Exam - General 1994 Ears/Nose/Throat otoscopic exam Overall: tympanic membranes clear 08/18/2017 None Full Exam - General 1994 Ears/Nose/Throat otoscopic exam Overall: external auditory canals clear 08/18/2017 None Full Exam - General 1994 Ears/Nose/Throat lips/teeth/gingiva Overall: benign lips 08/18/2017 None Full Exam - General 1994 Ears/Nose/Throat oral cavity/pharynx/larynx Overall: oral mucosa clear 08/18/2017 None Full Exam - General 1994 Ears/Nose/Throat oral cavity/pharynx/larynx Overall: oropharyngeal mucosa clear 08/18/2017 None Full Exam - General 1994 Respiratory respiratory effort/rhythm Overall: no retractions 08/18/2017 None Full Exam - General 1994 Respiratory respiratory effort/rhythm Overall: normal rate 08/18/2017 None Full Exam - General 1994 Respiratory auscultation Overall: breath sounds clear bilaterally 08/18/2017 None Full Exam - General 1994 Cardiovascular auscultation of heart Overall: regular rate 08/18/2017 None Full Exam - General 1994 Cardiovascular auscultation of heart Overall: normal heart sounds 08/18/2017 None Full Exam - General 1994 Lymphatic neck nodes Overall: posterior cervical chain benign 08/18/2017 None Full Exam - General 1994 Lymphatic neck nodes Overall: anterior cervical chain benign 08/18/2017 None Full Exam - General 1994 Musculoskeletal head and neck Overall: head atraumatic 08/18/2017 None Full Exam - General 1994 Musculoskeletal gait and station Overall: normal station 08/18/2017 None Full Exam - General 1994 Musculoskeletal gait and station Overall: normal gait 08/18/2017 None Full Exam - General 1994 Integument inspection of skin Overall: no rash, lesions 08/18/2017 None Full Exam - General 1994 Neurologic cranial nerves Overall: crainial nerves 2 - 12 grossly intact 08/18/2017 None Full Exam - General 1994 Neurologic gait Overall: no ataxia, no unsteadiness 08/18/2017 None Full Exam - General 1994 Neurologic motor Overall: normal bulk, tone 08/18/2017 None Full Exam - General 1994 Neurologic coordination Overall: no dysdiadochokinesis, no dysmetria 08/18/2017 None Full Exam - General 1994 Psychiatric orientation/consciousness Overall: oriented to person, place and time 08/18/2017 None Full Exam - General 1994 Psychiatric mood and affect Overall: normal mood and affect 08/18/2017 None Full Exam - General 1994 Psychiatric appearance Overall: well-groomed, good eye contact 08/18/2017 None Full Exam - General 1994 Psychiatric speech Overall: normal quality, no aphasia 08/18/2017 None Full Exam - General 1994 Psychiatric speech Overall: normal quality, quantity, rate 08/18/2017 None Full Exam - General 1994 Psychiatric thought Overall: normal form and content 08/18/2017 None Full Exam - General 1994 Psychiatric cognition/memory Overall: immediate, recent, remote memory intact 08/18/2017 None Full Exam - General 1994 Psychiatric cognition/memory Overall: normal concentration, intelligence 08/18/2017 None Full Exam - General 1994 Psychiatric judgment/insight Overall: judgment and insight intact 08/18/2017 None Full Exam - General 1994 Constitutional general appearance Overall: well developed 03/26/2017 None Full Exam - General 1994 Constitutional general appearance Overall: in no acute distress 03/26/2017 None Full Exam - General 1994 Constitutional general appearance Overall: well nourished 03/26/2017 None Full Exam - General 1994 Eyes conjunctiva /eyelids Overall: conjunctiva clear 03/26/2017 None Full Exam - General 1994 Eyes conjunctiva /eyelids Overall: eyelids normal 03/26/2017 None Full Exam - General 1994 Ears/Nose/Throat lips/teeth/gingiva Overall: benign lips 03/26/2017 None Full Exam - General 1994 Respiratory respiratory effort/rhythm Overall: no retractions 03/26/2017 None Full Exam - General 1994 Respiratory respiratory effort/rhythm Overall: normal rate 03/26/2017 None Full Exam - General 1994 Musculoskeletal head and neck Overall: head atraumatic 03/26/2017 None Full Exam - General 1994 Musculoskeletal gait and station Overall: normal gait 03/26/2017 None Full Exam - General 1994 Musculoskeletal gait and station Overall: normal station 03/26/2017 None Full Exam - General 1994 Neurologic cranial nerves Overall: crainial nerves 2 - 12 grossly intact 03/26/2017 None Full Exam - General 1994 Psychiatric orientation/consciousness Overall: oriented to person, place and time 03/26/2017 None Full Exam - General 1994 Psychiatric mood and affect Overall: normal mood and affect 03/26/2017 None Full Exam - General 1994 Constitutional general appearance Overall: well developed 01/03/2016 None Full Exam - General 1994 Constitutional general appearance Overall: in no acute distress 01/03/2016 None Full Exam - General 1994 Constitutional general appearance Overall: well nourished 01/03/2016 None Full Exam - General 1994 Respiratory auscultation Overall: breath sounds clear bilaterally 01/03/2016 None Full Exam - General 1994 Respiratory respiratory effort/rhythm Overall: no retractions 01/03/2016 None Full Exam - General 1994 Respiratory respiratory effort/rhythm Overall: normal rate 01/03/2016 None Full Exam - General 1994 Cardiovascular auscultation of heart Overall: normal heart sounds 01/03/2016 None Full Exam - General 1994 Cardiovascular auscultation of heart Overall: regular rate 01/03/2016 None Full Exam - General 1994 Cardiovascular auscultation of heart Overall: no murmurs 01/03/2016 None Full Exam - General 1994 Psychiatric orientation/consciousness Overall: oriented to person, place and time 01/03/2016 None Full Exam - General 1994 Ears/Nose/Throat otoscopic exam Overall: external auditory canals clear 01/03/2016 None Full Exam - General 1994 Ears/Nose/Throat otoscopic exam Overall: tympanic membranes clear 01/03/2016 None Full Exam - General 1994 Constitutional general appearance Overall: well nourished 11/13/2015 None Full Exam - General 1994 Constitutional general appearance Overall: well developed 11/13/2015 None Full Exam - General 1994 Constitutional general appearance Overall: in no acute distress 11/13/2015 None Full Exam - General 1994 Eyes pupils and irises Overall: pupils equal, round, reactive to light and accomodation 11/13/2015 None Full Exam - General 1994 Eyes conjunctiva /eyelids Overall: conjunctiva clear 11/13/2015 None Full Exam - General 1994 Eyes conjunctiva /eyelids Overall: eyelids normal 11/13/2015 None Full Exam - General 1994 Eyes conjunctiva /eyelids Overall: cornea clear 11/13/2015 None Full Exam - General 1994 Ears/Nose/Throat lips/teeth/gingiva Overall: benign gingiva 11/13/2015 None Full Exam - General 1994 Ears/Nose/Throat lips/teeth/gingiva Overall: no masses 11/13/2015 None Full Exam - General 1994 Ears/Nose/Throat lips/teeth/gingiva Overall: normal dentition 11/13/2015 None Full Exam - General 1994 Ears/Nose/Throat lips/teeth/gingiva Overall: benign lips 11/13/2015 None Full Exam - General 1994 Ears/Nose/Throat oral cavity/pharynx/larynx Overall: oropharyngeal mucosa clear 11/13/2015 None Full Exam - General 1994 Ears/Nose/Throat oral cavity/pharynx/larynx Overall: no masses 11/13/2015 None Full Exam - General 1994 Ears/Nose/Throat oral cavity/pharynx/larynx Overall: oral mucosa clear 11/13/2015 None Full Exam - General 1994 Ears/Nose/Throat otoscopic exam Overall: tympanic membranes clear 11/13/2015 None Full Exam - General 1994 Ears/Nose/Throat otoscopic exam Overall: external auditory canals clear 11/13/2015 None Full Exam - General 1994 Respiratory respiratory effort/rhythm Overall: normal rate 11/13/2015 None Full Exam - General 1994 Respiratory respiratory effort/rhythm Overall: no retractions 11/13/2015 None Full Exam - General 1994 Respiratory auscultation Overall: breath sounds clear bilaterally 11/13/2015 None Full Exam - General 1994 Cardiovascular extremities Overall: no clubbing 11/13/2015 None Full Exam - General 1994 Cardiovascular auscultation of heart Overall: regular rate 11/13/2015 None Full Exam - General 1994 Cardiovascular auscultation of heart Overall: normal heart sounds 11/13/2015 None Full Exam - General 1994 Cardiovascular auscultation of heart Overall: no murmurs 11/13/2015 None Full Exam - General 1994 Abdomen abdominal exam Overall: no tenderness 11/13/2015 None Full Exam - General 1994 Abdomen abdominal exam Overall: normal bowel sounds 11/13/2015 None Full Exam - General 1994 Musculoskeletal spine, ribs and pelvis Spine: tender @ lumbar spine 11/13/2015 None Full Exam - General 1994 Musculoskeletal gait and station Overall: normal station 11/13/2015 None Full Exam - General 1994 Musculoskeletal gait and station Overall: normal gait 11/13/2015 None Full Exam - General 1994 Integument inspection of skin Overall: no rash, lesions 11/13/2015 None Full Exam - General 1994 Psychiatric orientation/consciousness Overall: oriented to person, place and time 11/13/2015 None Full Exam - General 1994 Psychiatric appearance Overall: well-groomed, good eye contact 11/13/2015 None Full Exam - General 1994 Psychiatric mood and affect Mood: anxious 11/13/2015 None Full Exam - General 1994 Musculoskeletal head and neck Cervical Spine: decreased rotation 11/13/2015 None Full Exam - General 1994 Musculoskeletal head and neck Cervical Spine: decreased left lateral bending 11/13/2015 None Full Exam - General 1994 Musculoskeletal head and neck Cervical Spine: decreased right lateral bending 11/13/2015 None Procedures Procedure Codes Date TRIAMCINOLONE ACET INJ NOS CPT-4: J3301 08/18/2017 THER/PROPH/DIAG INJ SC/IM CPT-4: 29932 08/18/2017 PPPS, SUBSEQ VISIT CPT -4: G0439 03/26/2017 Vital Signs Date Vital 08/02/2018 Blood Pressure 1: 138/76 Code : 8480-6 BMI: 29.4 Code : 88079-7 Heart Rate 1 : 80 bpm Height: 5'10" SpO2: 98% Weight: 205 lbs 04/08/2018 Blood Pressure 1: 130/80 Code : 8480-6 Heart Rate 1: 83 bpm Height: 5'10" SpO2: 96% Weight: 03/09/2018 Blood Pressure 1: 136/78 Code : 8480-6 BMI: 29.4 Code : 89252-5 Heart Rate 1 : 91 bpm Height: 5'10" SpO2: 98% Weight: 205 lbs 03/03/2018 Blood Pressure 1: 148/88 Code : 8480-6 BMI: 28.0 Code : 44736-1 Heart Rate 1 : 96 bpm Height: 5'10" SpO2: 98% Weight: 195 lbs 10/16/2017 Blood Pressure 1: 142/72 Code : 8480-6 BMI: 29.1 Code : 49898-9 Heart Rate 1 : 84 bpm Height: 5'10" SpO2: 98% Weight: 203 lbs 08/18/2017 Blood Pressure 1: 140/76 Code : 8480-6 BMI: 29.6 Code : 47008-6 Heart Rate 1 : 82 bpm Height: 5'10" SpO2: 95% Weight: 206 lbs 03/26/2017 Blood Pressure 1: 124/70 Code : 8480-6 BMI: 28.8 Code : 60597-6 Heart Rate 1 : 70 bpm Height: 5'10" SpO2: 98% Weight: 201 lbs 01/03/2016 Blood Pressure 1: 120/78 Code : 8480-6 BMI: 28.8 Code : 41491-3 Heart Rate 1 : 65 bpm Height: 5'10" SpO2: 97% Weight: 201 lbs 11/13/2015 Blood Pressure 1: 144/80 Code : 8480-6 Blood Pressure 1: 152/88 Code: 8480-6 BMI: 28.8 Code: 11796-5 Heart Rate 1: 76 bpm Height: 5'10" SpO2: 98% Weight: 201 lbs Functional Status No Functional Status data History of Present Illness Symptom Name Status Result Effective Date Notes vision change Location in the right eye 08/02/2018 None vision change Quality acute 08/02/2018 None vision change Onset and Resolution ongoing 08/02/2018 None vision change Onset of Symptom several weeks ago 08/02/2018 None vision change Quality diplopia 08/02/2018 None vision change Triggers no known associated factors 08/02/2018 None vision change Frequency of Episodes daily 08/02/2018 None jaw pain Quality improving 04/08/2018 None jaw pain Onset and Resolution ongoing 04/08/2018 None jaw pain Onset of Symptom months ago 04/08/2018 None jaw pain Frequency of Episodes decreasing 04/08/2018 None jaw pain Alleviating Factors medication 04/08/2018 None jaw pain Pertinent Findings Denies fever 04/08/2018 None jaw pain Onset and Resolution ongoing 03/09/2018 None jaw pain Quality improving 03/09/2018 None jaw pain Onset of Symptom months ago 03/09/2018 None jaw pain Frequency of Episodes decreasing 03/09/2018 None jaw pain Alleviating Factors medication 03/09/2018 None jaw pain Quality improving 03/03/2018 None jaw pain Onset and Resolution ongoing 03/03/2018 None jaw pain Onset of Symptom months ago 03/03/2018 None jaw pain Frequency of Episodes decreasing 03/03/2018 None jaw pain Alleviating Factors medication 03/03/2018 None headache Location in the right temporal region 10/16/2017 None headache Quality constant 10/16/2017 None headache Quality sharp 10/16/2017 None headache Quality stabbing 10/16/2017 None headache Quality throbbing 10/16/2017 None headache Onset and Resolution sudden in onset 10/16/2017 None headache Frequency of Episodes daily 10/16/2017 None headache Location in the right temporal region 08/18/2017 None headache Quality sharp 08/18/2017 None headache Quality stabbing 08/18/2017 None headache Quality constant 08/18/2017 None headache Quality throbbing 08/18/2017 None headache Onset and Resolution sudden in onset 08/18/2017 None headache Onset of Symptom 2 weeks ago 08/18/2017 None headache Frequency of Episodes daily 08/18/2017 None Annual Medicare Wellness Exam Alcohol Use drinks _ days per week 03/26/2017 None Annual Medicare Wellness Exam Aspirin Use no 03/26/2017 None Annual Medicare Wellness Exam Blood Glucose (self reported) don't know 03/26/2017 None Annual Medicare Wellness Exam Blood Pressure (self reported ) borderline (120/80 - 139/89) 03/26/2017 None Annual Medicare Wellness Exam Cholesterol (self reported) desireable (below 200) 03/26/2017 None Annual Medicare Wellness Exam Depression (last 6 months) almost never 03/26/2017 None Annual Medicare Wellness Exam Depression or Hopelessness almost never 03/26/2017 None Annual Medicare Wellness Exam Describe Your Health good 03/26/2017 None Annual Medicare Wellness Exam Exercise Habits exercises 7 days per week 03/26/2017 None Annual Medicare Wellness Exam Handling Stress usually shawn effectively 03/26/2017 None Annual Medicare Wellness Exam Hemaglobin A-1C (self reported ) don't know 03/26/2017 None Annual Medicare Wellness Exam Hours of Sleep 6-8 03/26/2017 None Annual Medicare Wellness Exam Interaction with Friends yes 03/26/2017 None Annual Medicare Wellness Exam Interests & Pleasure most of the time 03/26/2017 None Annual Medicare Wellness Exam Life Satisfaction satisfied 03/26/2017 None Annual Medicare Wellness Exam Motor Vehicle Safety always fastens seat belt: y 03/26/2017 None Annual Medicare Wellness Exam Nutrition servings of vegetables / fruit per day: 2 03/26/2017 None Annual Medicare Wellness Exam Smoking and Tobacco Use non smoker 03/26/2017 None Annual Medicare Wellness Exam Social & Emotional Support usually 03/26/2017 None Annual Medicare Wellness Exam Stress some of the time 03/26/2017 None Annual Medicare Wellness Exam Sun Exposure protects skin when outdoors: n 03/26/2017 None blood pressure followup Quality chronic 01/03/2016 None blood pressure followup Onset and Resolution ongoing 01/03/2016 None blood pressure followup Onset of Symptom during adulthood 01/03/2016 None blood pressure followup Frequency of Episodes decreasing 01/03/2016 None blood pressure followup Severity mild 01/03/2016 None blood pressure followup Triggers no known associated factors 01/03/2016 None blood pressure followup Alleviating Factors medication 01/03/2016 None blood pressure followup Blood Pressure Values pt checking blood pressure at home, did not bring in to clinic 01/03/2016 None back pain Location lumbar spine 11/13/2015 None back pain Onset and Resolution ongoing 11/13/2015 None back pain Quality chronic 11/13/2015 None back pain Quality constant 11/13/2015 None back pain Onset of Symptom 7 months ago 11/13/2015 from back surgery in March back pain Limitation on Activities moderately limits activities 11/13/2015 None back pain Frequency of Episodes constant 11/13/2015 None back pain Alleviating Factors rest 11/13/2015 None back pain Exacerbating Factors activity 11/13/2015 None back pain Triggers activity 11/13/2015 None back pain Mechanism of injury unknown 11/13/2015 None back pain Radiating does not radiate 11/13/2015 None back pain Severity mild 11/13/2015 None Advance Directives No Advance Directive data Encounters Encounter Performer Location Codes Date ([id number]) [id number] EST. PATIENT, LEVEL III Diagnosis: Trigeminal neuralgia[ICD10: G50.0] Diagnosis: Ocular pain, right eye[ICD10: H57.11] [facility] CPT-4: 42192 08/02/2018 ([id number]) 70828 EST. PATIENT, LEVEL III Diagnosis: Essential (primary) hypertension[ICD10: I10] Diagnosis: Trigeminal neuralgia[ICD10: G50.0] Luz Dunn MD, [facility] CPT-4: 15387 04/08/2018 ([id number]) 04376 EST. PATIENT, LEVEL III Diagnosis: Trigeminal neuralgia[ICD10: G50.0] Lou Dunn MD, [facility] CPT-4: 83058 03/09/2018 33998 EST. PATIENT, LEVEL IV Diagnosis: Trigeminal neuralgia[ICD10: G50.0] Maggie Dunn MD, [facility] CPT-4: 41452 03/03/2018 86434 EST. PATIENT, LEVEL IV Diagnosis: Atypical facial pain[ICD10: G50.1] Diagnosis: Low back pain[ICD10: M54.5] Diagnosis: Headache[ICD10: R51] Diagnosis: Radiculopathy, cervical region[ICD10: M54.12] Maggie Dunn MD, [facility] CPT-4: 92068 10/16/2017 15497 EST. PATIENT, LEVEL IV Diagnosis: Atypical facial pain[ICD10: G50.1] Diagnosis: Headache[ICD10: R51] Maggie Dunn MD, [facility] CPT-4: 44134 08/18/2017 ([id number]) [id number] EST. PATIENT, LEVEL III Diagnosis: Essential (primary) hypertension[ICD10: I10] Diagnosis: Low back pain[ICD10: M54.5] Lou Dunn MD, [facility] CPT-4: 98424 01/03/2016 OFFICE VISIT, NEW - LEVEL 3 Diagnosis: Radiculopathy, cervical region[ICD10: M54.12] Diagnosis: Low back pain[ICD10: M54.5] Diagnosis: Allergic rhinitis, unspecified[ICD10: J30.9] Diagnosis: Mixed hyperlipidemia[ICD10: E78.2] Lou Dunn MD, [facility] CPT-4: 45230 11/13/2015 Plan of Care Planned Activity Notes Codes Status Date Visit Plan: right quaker/facial pain - will check labs RX for steroid sent to pharmacy - refilled tegretol. Pt is to notify clinic if symptoms do not improve, if they worsen, or with any changes, questions, or concerns. 08/02/2018 Patient Education: Patient Medication Summary Completed 08/02/2018 Visit Plan: Hypertension - well controlled - continue with current medications, continue with no added salt diet. Pt has been encouraged to exercise daily. The pt has been advised to call the office if there are any acute concerns about change in blood pressure readings at home. Trigeminal Neuralgia - recommended patient to stop the treatment - call if the symptoms return. 04/08/2018 Appointment: Luz Dunn WPtel: [phone] [facility] (15 min) Moderate 04/08/2018 Patient Education: Patient Medication Summary Completed 04/08/2018 Visit Plan: Trigeminal neuralgia-pain has improved with tegretol but patient unable to tolerate full pill -instructed patient to take 1/ 2 tab q am and 1 full pill q hs for the next 2 weeks then increase to a full pill twice daily -follow up in 1 month, sooner if needed. Patient verbalized understanding of plan. 03/09/2018 Appointment: [facility] [phone] [phone] [place] (15 min) Moderate 03/09/2018 Patient Education: Patient Medication Summary Completed 03/09/2018 Visit Plan: Facial pain/trigeminal neuralgia - Dr. Dunn in to assess patient - will send RX - pt is to notify clinic if symptoms do not improve, or with any changes, questions, or concerns. 03/03/2018 Appointment: Maggie Franco [facility] [phone] [facility] (15 min) Moderate 03/03/2018 Patient Education: Patient Medication Summary Completed 03/03/2018 Care Plan: Referral Order SNOMED-CT : [id number] Pending 11/02/2017 Visit Plan: right quaker/facial pain - will check labs - will start steroid taper - will treat/refer as indicated by labs. Pt is to notify clinic if symptoms do not improve, if they worsen, or with any changes, questions, or concerns. 10/16/2017 Appointment: Maggie Franco [facility] [phone] [facility] (30 min) Complex 10/16/2017 Patient Education: Patient Medication Summary Completed 10/16/2017 Visit Plan: right quaker/facial pain - will check labs - will give steroid shot today and start steroid taper - will treat/refer as indicated by labs. Pt is to notify clinic if symptoms do not improve, if they worsen, or with any changes, questions, or concerns. 08/18/2017 Visit Plan: right quaker/facial pain - will check labs - will give steroid shot today and start steroid taper - will treat/refer as indicated by labs. Pt is to notify clinic if symptoms do not improve, if they worsen, or with any changes, questions, or concerns. 08/18/2017 Appointment: Maggie Franco [facility]el[facility] [phone] [facility] (30 min) Complex 08/18/2017 Patient Education: Patient Medication Summary Completed 08/18/2017 Care Plan: Sed Rate Approved 08/18/2017 Care Plan: C-Reactive Protein Qnt Approved 08/18/2017 Visit Plan: Medicare Exam - today we discussed the patients past history, immunizations, preventative exams/evaluations - colonoscopy, fecal occult blood testing, routine labs for renal function, glucose, cholesterol, osteoporosis evaluations, cardiovascular testing and cancer screenings. We have also discussed mental health and the signs/symptoms of depression. The patient was advised of home safety evaluations and the need to make sure that as the aging process continues, we need to be aware of different ways to make the home a safer place to reside. The patient has also been counseled that exercise is necessary - and of utmost importance as we age to help decrease fall risk and to maintain independence in the home. Today we discussed the need for the patient to create paperwork for Advanced directives as well as for the patient to provide this office with a copy of her DOPA paperwork for health care surrogate. 03/26/2017 Appointment: Maggie Franco [facility]el[facility] [phone] [facility] [facility] - Annual Wellness Visit 03/26/2017 Patient Education: Patient Medication Summary Completed 03/26/2017 Care Plan: Comp Metabolic Pending 03/26/2017 Care Plan: Cbc With Differential Pending 03/26/2017 Care Plan: Tsh Pending 03/26/2017 Care Plan: Lipid Pending 03/26/2017 Appointment: Maggie Franco [facility]el[facility] [phone] [facility] (30 min) Complex 02/21/2016 Visit Plan: Hypertension - well controlled - continue with current medications, continue with no added salt diet. Pt has been encouraged to exercise daily. The pt has been advised to call the office if there are any acute concerns about change in blood pressure readings at home. Back pain- improving-continue physical therapy until released by therapist 01/03/2016 Patient Education: Patient Medication Summary Completed 01/03/2016 Visit Plan: Neck pain-recommend xray of neck Low back pain- history of surgery-recommend PT for strengthening Allergies - chronic - recommended pt to use allergy medication as prescribed. Pt has been counseled as to the appropriate use of the medication. Pt to call if allergy symptoms are not controlled with the medication. If using nasal spray, instructions as follows: Nasal spray- use twice daily, one spray per nostril twice daily, after 30 minutes, rinse out nose with saline spray.. Use opposite hand per nostril to spray in the nasal steroid allergy spray. Hyperlipidemia - patient not on any medications-orders for fasting last provided 11/13/2015 Appointment: New Patient 11/13/2015 Patient Education: Patient Medication Summary Completed 11/13/2015 Referral: Joel Bland Referral Initiated Referral: Joel Bland Referral Appointment Requested Instructions Comment . right quaker/facial pain - will check labs - will start steroid taper - will treat/refer as indicated by labs. Pt is to notify clinic if symptoms do not improve, if they worsen, or with any changes, questions, or concerns. . Facial pain/trigeminal neuralgia - Dr. Dunn in to assess patient - will send RX - pt is to notify clinic if symptoms do not improve, or with any changes, questions, or concerns. FLONASE 1 SPRAY EACH NARE DAILY FOR ALLERGY SYMPTOMS [facility]12 [facility]FORE APPOINTMENT . Neck pain-recommend xray of neck Low back pain-history of surgery-recommend PT for strengthening Allergies - chronic - recommended pt to use allergy medication as prescribed. Pt has been counseled as to the appropriate use of the medication. Pt to call if allergy symptoms are not controlled with the medication. If using nasal spray, instructions as follows: Nasal spray- use twice daily, one spray per nostril twice daily, after 30 minutes, rinse out nose with saline spray.. Use opposite hand per nostril to spray in the nasal steroid allergy spray. Hyperlipidemia - patient not on any medications-orders for fasting last provided . right quaker/facial pain - will check labs RX for steroid sent to pharmacy - refilled tegretol. Pt is to notify clinic if symptoms do not improve, if they worsen, or with any changes, questions, or concerns. . Hypertension - well controlled - continue with current medications, continue with no added salt diet. Pt has been encouraged to exercise daily. The pt has been advised to call the office if there are any acute concerns about change in blood pressure readings at home. Trigeminal Neuralgia - recommended patient to stop the treatment - call if the symptoms return. . right quaker/facial pain - will check labs - will give steroid shot today and start steroid taper - will treat/refer as indicated by labs. Pt is to notify clinic if symptoms do not improve, if they worsen, or with any changes, questions, or concerns. . right quaker/facial pain - will check labs - will give steroid shot today and start steroid taper - will treat/refer as indicated by labs. Pt is to notify clinic if symptoms do not improve, if they worsen, or with any changes, questions, or concerns. . Medicare Exam - today we discussed the patients past history, immunizations, preventative exams/evaluations - colonoscopy, fecal occult blood testing, routine labs for renal function, glucose, cholesterol, osteoporosis evaluations, cardiovascular testing and cancer screenings. We have also discussed mental health and the signs/symptoms of depression. The patient was advised of home safety evaluations and the need to make sure that as the aging process continues, we need to be aware of different ways to make the home a safer place to reside. The patient has also been counseled that exercise is necessary - and of utmost importance as we age to help decrease fall risk and to maintain independence in the home. Today we discussed the need for the patient to create paperwork for Advanced directives as well as for the patient to provide this office with a copy of her DOPA paperwork for health care surrogate. . Hypertension - well controlled - continue with current medications, continue with no added salt diet. Pt has been encouraged to exercise daily. The pt has been advised to call the office if there are any acute concerns about change in blood pressure readings at home. Back [id number] physical therapy until released by therapist CHANGE TEGRETOL TO 1/2 Q AM AND A FULL TAB AT BEDTIME X 2 WEEKS THEN YOU SHOULD BE ABLE TO INCREASE TO A FULL PILL TWICE DAILY . Trigeminal neuralgia-pain has improved with tegretol but patient unable to tolerate full pill -instructed patient to take 1/2 tab q am and 1 full pill q hs for the next 2 weeks then increase to a full pill twice daily -follow up in 1 month, sooner if needed. Patient verbalized understanding of plan.
--- OUTSIDE RECORDS SUMMARY | 2018-08-18 07:55 | XMS REPORT | CCD ---
Author Author [facility] Address [address] [place] [address] Phone Care Team Providers Care Card Processing Clerk Name Role Phone PP Unavailable CCM Unavailable Summary Purpose Interface Exchange Insurance Providers Payer name Policy type / Coverage type Covered republican ID Effective Begin Date Effective End Date WPS Medicare Part B Medicare Part B [id number] Unknown Unknown [employer] Medicare Part B [id number] Unknown Unknown Family history Mother Diagnosis Age At Onset Breast cancer Unknown Arthritis Unknown Father Diagnosis Age At Onset Emphysema Unknown Arthritis Unknown Social History Social History Element Codes Description Effective Dates Marital status Unknown Kristyn 11/13/2015 Number of children Unknown 4 11/13/[address]: 021624363 Never smoker 11/13/[address]: 613223 Currently drinks alcohol 11/13/2015 Frequency of drinks SNOMED CT: 925315100 1-4 drinks per week 1 per week 11/13/2015 Allergies, Adverse Reactions, Alerts Allergies, Adverse Reactions, Alerts data not found Past Medical History Illness Codes Condition Status Onset Date Resolved Date 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 Active 08/18/2017 Unknown Headache ICD-9: 784.0 ICD-10: R51 Active 08/18/2017 Unknown Low back pain ICD-9: 724.2 ICD-10: M54.5 Active 01/02/2016 Unknown Radiculopathy, cervical region ICD-9: 723.4 ICD-10: M54.12 Active 11/12/2015 Unknown Encounter for general adult medical examination with abnormal findings ICD-9: V70.0 ICD-10: Z00.01 Active 03/26/2017 Unknown Essential (primary) hypertension ICD-9: 401.9 ICD-10: I10 Active 01/02/2016 Unknown Allergic rhinitis, unspecified ICD-9: 477.9 ICD-10: J30.9 Active 11/12/2015 Unknown Mixed hyperlipidemia ICD-9: 272.2 ICD-10: E78.2 Active 11/12/2015 Unknown Problems Condition Codes Effective Dates Condition Status 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 08/18/2017 Active Headache ICD-9: 784.0 ICD-10: R51 08/18/2017 Active Low back pain ICD-9: 724.2 ICD-10: M54.5 01/02/2016 Active Radiculopathy, cervical region ICD-9: 723.4 ICD-10: M54.12 11/12/2015 Active Encounter for general adult medical examination with abnormal findings ICD-9: V70.0 ICD-10: Z00.01 03/26/2017 Active Essential (primary) hypertension ICD-9: 401.9 ICD-10: I10 01/02/2016 Active Allergic rhinitis, unspecified ICD-9: 477.9 ICD-10: J30.9 11/12/2015 Active Mixed hyperlipidemia ICD-9: 272.2 ICD-10: E78.2 11/12/2015 Active Medications Medication Codes Instructions Start Date Stop Date Status Fill Instructions prednisone 10 mg tablet RxNorm: 088886 Tablet(s) PO 10/16/2017 No Stop Date Active 6, 5,4,3,2,1 valacyclovir 1 gram tablet RxNorm: 006198 1 Tablet(s) PO TID 10/22/2017 Inactive gabapentin 100 mg capsule RxNorm: 001029 1 Capsule(s) PO TID as needed for pain 10/16/2017 10/25/2017 Inactive prednisone 10 mg tablet RxNorm: 368740 Tablet(s) PO 09/08/2017 10/15/2017 Inactive 6, 5,4,3,2,1 prednisone 10 mg tablet RxNorm: 201608 Tablet(s) PO 08/19/2017 09/07/2017 Inactive 6, 5,4,3,2,1 Kenalog 40 mg/mL suspension for injection RxNorm: 4094844 1.5 Milliliter(s) Inj 08/18/2017 08/18/2017 Inactive Medication Administered Medication Codes Instructions Start Date Status Kenalog 40 mg/mL suspension for injection RxNorm: 8437232 1.5Milliliter 08/18/2017 No longer Active Immunizations Vaccine Codes Date Status Tetanus, Diptheria, Pertussis CVX: 113 completed Tetanus/Diptheria CVX: 113 07/22/2015 completed Assessments Condition Codes Effective Dates Radiculopathy, cervical region ICD-10: M54.12 ICD-9: 723.4 10/16/2017 Low back pain ICD-10: M54.5 ICD-9: 724.2 10/16/2017 Headache ICD-10: R51 ICD-9: 784.0 10/16/2017 Atypical facial pain ICD-10: G50.1 ICD-9: 350.2 10/16/2017 Encounter for general adult medical examination with abnormal findings ICD-10: Z00.01 ICD-9: V70.0 03/26/2017 Essential (primary) hypertension ICD-10: I10 ICD-9: 401.9 01/03/2016 Allergic rhinitis, unspecified ICD-10: J30.9 ICD-9: 477.9 11/13/2015 Mixed hyperlipidemia ICD-10: E78.2 ICD-9: 272.2 11/13/2015 Reason For Visit Reason For Visit Effective Dates Notes headache 10/16/2017 headache 08/18/2017 Annual Medicare Wellness Exam 03/26/2017 blood pressure followup 01/03/2016 back pain 11/13/2015 Results Observation Observation Code Item Item Code Result Date Tsh Ord6 TSH (3rd IS) 1.30 uIU/mL 10/16/2017 Sed Rate Ord21 ESR 38 mm/hr 10/16/2017 C-Reactive Protein Qnt Crqnt CRP 0.8 mg/dl 10/16/2017 Comp Metabolic Eqg039 NA 139 mEq/L 10/16/2017 Comp Metabolic Sci989 K 4.2 mEq/L 10/16/2017 Comp Metabolic Jwn407 CL 106 mEq/L 10/16/2017 Comp Metabolic Gjc120 CO2 26.0 mEq/L 10/16/2017 Comp Metabolic Hge895 ANION GAP 11 10/16/2017 Comp Metabolic Vmx937 GLUCOSE 94 mg/dL 10/16/2017 Comp Metabolic Qkp402 Creat 1.0 mg/dL 10/16/2017 Comp Metabolic Wzx290 eGFR 77 ml/min/1.73m2 10/16/2017 Comp Metabolic Lrv064 BUN 18 mg/dL 10/16/2017 Comp Metabolic Jgk100 B/C Ratio 17.8 Ratio 10/16/2017 Comp Metabolic Ths456 CALCIUM 9.7 mg/dL 10/16/2017 Comp Metabolic Nqh955 ALK PHOS 47 U/L 10/16/2017 Comp Metabolic Ull065 AST(SGOT) 21 U/L 10/16/2017 Comp Metabolic Bgp395 ALT(SGPT) 9 U/L 10/16/2017 Comp Metabolic Nep389 BILI T 1.1 mg/dL 10/16/2017 Comp Metabolic Llx862 ALBUMIN 4.3 g/dL 10/16/2017 Comp Metabolic Vqh477 TPRO 7.2 g/dL 10/16/2017 Comp Metabolic Mds095 GLOB 2.9 g/dL 10/16/2017 Comp Metabolic Mii851 A/G Ratio 1.5 Ratio 10/16/2017 Comp Metabolic Lwr841 Osmo 279 mOsmo 10/16/2017 Cbc With Differential Ord2 WBC 7.99 K/ul 10/16/2017 Cbc With Differential Ord2 RBC 4.09 M/ul 10/16/2017 Cbc With Differential Ord2 HGB 13.3 g/dl 10/16/2017 Cbc With Differential Ord2 HCT 40.2 % 10/16/2017 Cbc With Differential Ord2 Neut% 55.5 % 10/16/2017 Cbc With Differential Ord2 MCV 98.3 fl 10/16/2017 Cbc With Differential Ord2 Lymph% 36.4 % 10/16/2017 Cbc With Differential Ord2 MCH 32.5 pg 10/16/2017 Cbc With Differential Ord2 [place]% 6.8 % 10/16/2017 Cbc With Differential Ord2 Eos% 0.9 % 10/16/2017 Cbc With Differential Ord2 MCHC 33.1 pg 10/16/2017 Cbc With Differential Ord2 Baso% 0.4 % 10/16/2017 Cbc With Differential Ord2 PLT 262 K/ul 10/16/2017 Cbc With Differential Ord2 RDW 15.3 % 10/16/2017 Cbc With Differential Ord2 Neut ABS# 4.44 K/ul 10/16/2017 Cbc With Differential Ord2 Lymph ABS# 2.91 K/ul 10/16/2017 Cbc With Differential Ord2 [place] ABS# 0.5 K/ul 10/16/2017 Cbc With Differential [...] Ord30 C/HDL 4.4 Ratio 03/26/2017 Comp Metabolic Gdg211 NA 138 mEq/L 03/26/2017 Comp Metabolic Zzl003 K 4.3 mEq/L 03/26/2017 Comp Metabolic Jjp515 CL 106 mEq/L 03/26/2017 Comp Metabolic Enu748 CO2 24.0 mEq/L 03/26/2017 Comp Metabolic Ryv759 ANION GAP 12 03/26/2017 Comp Metabolic Xpx610 GLUCOSE 93 mg/dL 03/26/2017 Comp Metabolic Tpi689 Creat 1.0 mg/dL 03/26/2017 Comp Metabolic Ovr087 eGFR 77 ml/min/1.73m2 03/26/2017 Comp Metabolic Nip626 BUN 17 mg/dL 03/26/2017 Comp Metabolic Sxz292 B/C Ratio 16.8 Ratio 03/26/2017 Comp Metabolic Gun933 CALCIUM 9.4 mg/dL 03/26/2017 Comp Metabolic Ljh484 ALK PHOS 46 U/L 03/26/2017 Comp Metabolic Cty473 AST(SGOT) 21 U/L 03/26/2017 Comp Metabolic Nfo058 ALT(SGPT) 11 U/L 03/26/2017 Comp Metabolic Llr447 BILI T 1.2 mg/dL 03/26/2017 Comp Metabolic Pah587 ALBUMIN 4.2 g/dL 03/26/2017 Comp Metabolic Ayn927 TPRO 7.4 g/dL 03/26/2017 Comp Metabolic Aer324 GLOB 3.2 g/dL 03/26/2017 Comp Metabolic Qjz229 A/G Ratio 1.3 Ratio 03/26/2017 Comp Metabolic Qin837 Osmo 277 mOsmo 03/26/2017 Tsh Ord6 hTSH II 1.02 uIU/mL 03/26/2017 Cbc With Differential Ord2 WBC 6.80 K/ul 03/26/2017 Cbc With Differential Ord2 RBC 4.31 M/ul 03/26/2017 Cbc With Differential Ord2 HGB 13.8 g/dl 03/26/2017 Cbc With Differential Ord2 Neut% 52.8 % 03/26/2017 Cbc With Differential Ord2 HCT 42.1 % 03/26/2017 Cbc With Differential Ord2 MCV 97.7 fl 03/26/2017 Cbc With Differential Ord2 Lymph% 37.2 % 03/26/2017 Cbc With Differential Ord2 [place]% 8.5 % 03/26/2017 Cbc With Differential Ord2 MCH 32.0 pg 03/26/2017 Cbc With Differential Ord2 MCHC 32.8 pg 03/26/2017 Cbc With Differential Ord2 Eos% 1.2 % 03/26/2017 Cbc With Differential Ord2 PLT 222 K/ul 03/26/2017 Cbc With Differential Ord2 Baso% 0.3 % 03/26/2017 Cbc With Differential Ord2 Neut ABS# 3.59 K/ul 03/26/2017 Cbc With Differential Ord2 RDW 14.9 % 03/26/2017 Cbc With Differential Ord2 Lymph ABS# 2.53 K/ul 03/26/2017 Cbc With Differential Ord2 [place] ABS# 0.6 K/ul 03/26/2017 Cbc With Differential Ord2 Eos ABS# 0.1 K/ul 03/26/2017 Cbc With Differential Ord2 Baso ABS# 0.0 K/ul 03/26/2017 Cbc With Differential Ord2 WBC 7.81 K/ul 11/14/2015 Cbc With Differential Ord2 RBC 4.48 M/ul 11/14/2015 Cbc With Differential Ord2 HGB 13.7 g/dl 11/14/2015 Cbc With Differential Ord2 Neut% 42.7 % 11/14/2015 Cbc With Differential Ord2 HCT 41.8 % 11/14/2015 Cbc With Differential Ord2 Lymph% 47.5 % 11/14/2015 Cbc With Differential Ord2 MCV 93.3 fl 11/14/2015 Cbc With Differential Ord2 MCH 30.6 pg 11/14/2015 Cbc With Differential Ord2 [place]% 7.0 % 11/14/2015 Cbc With Differential Ord2 Eos% 2.4 % 11/14/2015 Cbc With Differential Ord2 MCHC 32.8 pg 11/14/2015 Cbc With Differential Ord2 PLT 227 K/ul 11/14/2015 Cbc With Differential Ord2 Baso% 0.4 % 11/14/2015 Cbc With Differential Ord2 Neut ABS# 3.33 K/ul 11/14/2015 Cbc With Differential Ord2 RDW 14.9 % 11/14/2015 Cbc With Differential Ord2 Lymph ABS# 3.71 K/ul 11/14/2015 Cbc With Differential Ord2 [place] ABS# 0.6 K/ul 11/14/2015 Cbc With Differential Ord2 Eos ABS# 0.2 K/ul 11/14/2015 Cbc With Differential Ord2 Baso ABS# 0.0 K/ul 11/14/2015 Cbc With Differential Ord2 New Analyzer Notice Please note new ref ranges starting 10-03-2015 due to implemntation of new five part differential hematolgy analyzer. 11/14/2015 Comp Metabolic Ecf113 NA 138 mEq/L 11/14/2015 Comp Metabolic Uhr230 K 4.3 mEq/L 11/14/2015 Comp Metabolic Qiq405 CL 105 mEq/L 11/14/2015 Comp Metabolic Apl586 CO2 23.0 mEq/L 11/14/2015 Comp Metabolic Phx972 ANION GAP 14 11/14/2015 Comp Metabolic Hwq912 GLUCOSE 93 mg/dL 11/14/2015 Comp Metabolic Fqq928 Creat 1.0 mg/dL 11/14/2015 Comp Metabolic Fti123 eGFR 78 ml/min/1.73m2 11/14/2015 Comp Metabolic Xok948 BUN 12 mg/dL 11/14/2015 Comp Metabolic Tak762 B/C Ratio 12.0 Ratio 11/14/2015 Comp Metabolic Upe071 CALCIUM 9.3 mg/dL 11/14/2015 Comp Metabolic Bpi871 ALK PHOS 48 U/L 11/14/2015 Comp Metabolic Tnp902 AST(SGOT) 18 U/L 11/14/2015 Comp Metabolic Qly749 ALT(SGPT) 8 U/L 11/14/2015 Comp Metabolic Bnz585 BILI T 1.1 mg/dL 11/14/2015 Comp Metabolic Fuy969 ALBUMIN 4.2 g/dL 11/14/2015 Comp Metabolic Vro245 TPRO 7.0 g/dL 11/14/2015 Comp Metabolic Dfc176 GLOB 2.9 g/dL 11/14/2015 Comp Metabolic Zpo465 A/G Ratio 1.5 Ratio 11/14/2015 Comp Metabolic Ozq074 Osmo 275 mOsmo 11/14/2015 Lipid Ord30 CHOL [...] CPT-4: J3301 08/18/2017 THER/PROPH/DIAG INJ SC/IM CPT-4: 33514 08/18/2017 PPPS, SUBSEQ VISIT CPT -4: G0439 03/26/2017 Vital Signs Date Vital 10/16/2017 Blood Pressure 1: 142/72 Code : 8480-6 BMI: 29.1 Code : 24323-4 Heart Rate 1 : 84 bpm Height: 5'10" SpO2: 98% Weight: 203 lbs 08/18/2017 Blood Pressure 1: 140/76 Code : 8480-6 BMI: 29.6 Code : 22680-2 Heart Rate 1 : 82 bpm Height: 5'10" SpO2: 95% Weight: 206 lbs 03/26/2017 Blood Pressure 1: 124/70 Code : 8480-6 BMI: 28.8 Code : 33110-4 Heart Rate 1 : 70 bpm Height: 5'10" SpO2: 98% Weight: 201 lbs 01/03/2016 Blood Pressure 1: 120/78 Code : 8480-6 BMI: 28.8 Code : 14856-6 Heart Rate 1 : 65 bpm Height: 5'10" SpO2: 97% Weight: 201 lbs 11/13/2015 Blood Pressure 1: 144/80 Code : 8480-6 Blood Pressure 1: 152/88 Code: 8480-6 BMI: 28.8 Code: 53325-6 Heart Rate 1: 76 bpm Height: 5'10" SpO2: 98% Weight: 201 lbs Functional Status No Functional Status data History of Present Illness Symptom Name Status Result Effective Date Notes headache Location in the right temporal region [...] data Encounters Encounter Performer Location Codes Date 00731 EST. PATIENT, LEVEL IV Diagnosis: Atypical facial pain[ICD10: G50.1] Diagnosis: Low back pain[ICD10: M54.5] Diagnosis: Headache[ICD10: R51] Diagnosis: Radiculopathy, cervical region[ICD10: M54.12] [facility] CPT-4: 74550 10/16/2017 08960 EST. PATIENT, LEVEL IV Diagnosis: Atypical facial pain[ICD10: G50.1] Diagnosis: Headache[ICD10: R51] [facility] CPT-4: 15490 08/18/2017 ([id number]) 76041 EST. PATIENT, LEVEL III Diagnosis: Essential (primary) hypertension[ICD10: I10] Diagnosis: Low back pain[ICD10: M54.5] [facility] CPT-4: 63517 01/03/2016 OFFICE VISIT, NEW - LEVEL 3 Diagnosis: Radiculopathy, cervical region[ICD10: M54.12] Diagnosis: Low back pain[ICD10: M54.5] Diagnosis: Allergic rhinitis, unspecified[ICD10: J30.9] Diagnosis: Mixed hyperlipidemia[ICD10: E78.2] [facility] CPT-4: 26413 11/13/2015 Plan of Care Planned Activity Notes Codes Status Date Care Plan: Referral Order SNOMED-CT : [id number] Pending 11/02/2017 Visit Plan: right restoration/facial pain - will check labs - will start steroid taper - will treat/refer as indicated by labs. Pt is to notify clinic if symptoms do not improve, if they worsen, or with any changes, questions, or concerns. 10/16/2017 Appointment: Maggie Franco WPtel: [address] [place], [place] [phone] (30 min) Complex 10/16/2017 Patient Education: Patient Medication Summary Completed 10/16/2017 Visit Plan: right restoration/facial pain - will check labs - will give steroid shot today and start steroid taper - will treat/refer as indicated by labs. Pt is to notify clinic if symptoms do not improve, if they worsen, or with any changes, questions, or concerns. 08/18/2017 Visit Plan: right restoration/facial pain - will check labs - will give steroid shot today and start steroid taper - will treat/refer as indicated by labs. Pt is to notify clinic if symptoms do not improve, if they worsen, or with any changes, questions, or concerns. 08/18/2017 Appointment: [facility] [phone] [id number] ([facility]) Complex 08/18/2017 Patient Education: Patient [...] care surrogate. 03/26/2017 Appointment: Maggie [facility] [phone] [id number] [facility] - Annual Wellness Visit 03/26/2017 Patient Education: Patient Medication Summary Completed 03/26/2017 Care Plan: Comp Metabolic Pending 03/26/2017 Care Plan: Cbc With Differential Pending 03/26/2017 Care Plan: Tsh Pending 03/26/2017 Care Plan: Lipid Pending 03/26/2017 Appointment: Salvador [facility] [phone] [id number] ([facility] min) Complex 02/21/2016 Visit Plan: Hypertension [...] Referral Appointment Requested Instructions Comment . right restoration/facial pain - will check labs - will start steroid taper - will treat/refer as indicated by labs. Pt is to notify clinic if symptoms do not improve, if they worsen, or with any changes, questions, or concerns. FLONASE 1 SPRAY EACH NARE DAILY [id number]12 [facility] BEFORE APPOINTMENT . Neck [...] medications-orders for fasting last provided . right restoration/facial pain - will check labs - will give steroid shot today and start steroid taper - will treat/refer as indicated by labs. Pt is to notify clinic if symptoms do not improve, if they worsen, or with any changes, questions, or concerns. . right restoration/facial pain - will check labs - will [...] in blood pressure readings at home. Back [id number] physical therapy until released by therapist
--- OUTSIDE RECORDS SUMMARY | 2018-08-18 07:56 | XMS REPORT | CCD ---
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 Name Role Phone PP Unavailable CCM Unavailable Summary Purpose Interface Exchange Insurance Providers Payer name Policy type / Coverage type Covered republican ID Effective Begin Date Effective End Date WPS Medicare Part B Medicare Part B [id number] Unknown Unknown A[employer]na [employer] and Life Medicare Part B [id number] Unknown Unknown Family history Mother Diagnosis Age At Onset Breast cancer Unknown Arthritis Unknown Father Diagnosis Age At Onset Emphysema Unknown Arthritis Unknown Social History Social History Element Codes Description Effective Dates Marital status Unknown Kristyn 11/13/2015 Number of children Unknown 4 11/13/[address]: 310899864 Never smoker 11/13/[address]: 693202 Currently drinks alcohol 11/13/2015 Frequency of drinks SNOMED CT: 245726670 1-4 drinks per week 1 per week [...] Fill Instructions prednisone 10 mg tablet RxNorm: 991013 Tablet(s) PO 10/16/2017 No Stop Date Active 6, 5,4,3,2,1 valacyclovir 1 gram tablet RxNorm: 158567 1 Tablet(s) PO TID 10/22/2017 Inactive gabapentin 100 mg capsule RxNorm: 779166 1 Capsule(s) PO TID as needed for pain 10/16/2017 10/25/2017 Inactive prednisone 10 mg tablet RxNorm: 851505 Tablet(s) PO 09/08/2017 10/15/2017 Inactive 6, 5,4,3,2,1 prednisone 10 mg tablet RxNorm: 311116 Tablet(s) PO 08/19/2017 09/07/2017 Inactive 6, 5,4,3,2,1 Kenalog 40 mg/mL suspension for injection RxNorm: 7077081 1.5 Milliliter(s) Inj 08/18/2017 08/18/2017 Inactive Medication Administered Medication Codes Instructions Start Date Status Kenalog 40 mg/mL suspension for injection RxNorm: 7604473 1.5Milliliter 08/18/2017 No longer Active Immunizations Vaccine [...] Crqnt CRP 0.8 mg/dl 10/16/2017 Comp Metabolic Yyv017 NA 139 mEq/L 10/16/2017 Comp Metabolic Zal647 K 4.2 mEq/L 10/16/2017 Comp Metabolic Qie432 CL 106 mEq/L 10/16/2017 Comp Metabolic Efj594 CO2 26.0 mEq/L 10/16/2017 Comp Metabolic Fqm636 ANION GAP 11 10/16/2017 Comp Metabolic Tpc380 GLUCOSE 94 mg/dL 10/16/2017 Comp Metabolic Yti180 Creat 1.0 mg/dL 10/16/2017 Comp Metabolic Iyv538 eGFR 77 ml/min/1.73m2 10/16/2017 Comp Metabolic Mig367 BUN 18 mg/dL 10/16/2017 Comp Metabolic Xof587 B/C Ratio 17.8 Ratio 10/16/2017 Comp Metabolic Iml871 CALCIUM 9.7 mg/dL 10/16/2017 Comp Metabolic Pog430 ALK PHOS 47 U/L 10/16/2017 Comp Metabolic Wso712 AST(SGOT) 21 U/L 10/16/2017 Comp Metabolic Dpp193 ALT(SGPT) 9 U/L 10/16/2017 Comp Metabolic Gnr170 BILI T 1.1 mg/dL 10/16/2017 Comp Metabolic Lqq875 ALBUMIN 4.3 g/dL 10/16/2017 Comp Metabolic Fyj061 TPRO 7.2 g/dL 10/16/2017 Comp Metabolic Dkm067 GLOB 2.9 g/dL 10/16/2017 Comp Metabolic Eej837 A/G Ratio 1.5 Ratio 10/16/2017 Comp Metabolic Olh432 Osmo 279 mOsmo 10/16/2017 Cbc With Differential [...] 32.5 pg 10/16/2017 Cbc With Differential Ord2 Hunt% 6.8 % 10/16/2017 Cbc With Differential Ord2 [...] 2.91 K/ul 10/16/2017 Cbc With Differential Ord2 Hunt ABS# 0.5 K/ul 10/16/2017 Cbc With Differential [...] Ord30 C/HDL 4.4 Ratio 03/26/2017 Comp Metabolic Cwa989 NA 138 mEq/L 03/26/2017 Comp Metabolic Owk864 K 4.3 mEq/L 03/26/2017 Comp Metabolic Qsu460 CL 106 mEq/L 03/26/2017 Comp Metabolic Jnt710 CO2 24.0 mEq/L 03/26/2017 Comp Metabolic Pdb993 ANION GAP 12 03/26/2017 Comp Metabolic Pir215 GLUCOSE 93 mg/dL 03/26/2017 Comp Metabolic Ywu890 Creat 1.0 mg/dL 03/26/2017 Comp Metabolic Moa400 eGFR 77 ml/min/1.73m2 03/26/2017 Comp Metabolic Zfu669 BUN 17 mg/dL 03/26/2017 Comp Metabolic Jtq601 B/C Ratio 16.8 Ratio 03/26/2017 Comp Metabolic Dch777 CALCIUM 9.4 mg/dL 03/26/2017 Comp Metabolic Usj396 ALK PHOS 46 U/L 03/26/2017 Comp Metabolic Kgd823 AST(SGOT) 21 U/L 03/26/2017 Comp Metabolic Rlb756 ALT(SGPT) 11 U/L 03/26/2017 Comp Metabolic Gpz369 BILI T 1.2 mg/dL 03/26/2017 Comp Metabolic Myj985 ALBUMIN 4.2 g/dL 03/26/2017 Comp Metabolic Txa798 TPRO 7.4 g/dL 03/26/2017 Comp Metabolic Pxp683 GLOB 3.2 g/dL 03/26/2017 Comp Metabolic Epx350 A/G Ratio 1.3 Ratio 03/26/2017 Comp Metabolic Jmk859 Osmo 277 mOsmo 03/26/2017 Tsh Ord6 hTSH II 1.02 uIU/mL 03/26/2017 Cbc With Differential Ord2 WBC 6.80 K/ul 03/26/2017 Cbc With Differential Ord2 RBC 4.31 M/ul 03/26/2017 Cbc With Differential Ord2 HGB 13.8 g/dl 03/26/2017 Cbc With Differential Ord2 HCT 42.1 % 03/26/2017 Cbc With Differential Ord2 Neut% 52.8 % 03/26/2017 Cbc With Differential Ord2 MCV 97.7 fl 03/26/2017 Cbc With Differential Ord2 Lymph% 37.2 % 03/26/2017 Cbc With Differential Ord2 MCH 32.0 pg 03/26/2017 Cbc With Differential Ord2 Hunt% 8.5 % 03/26/2017 Cbc With Differential Ord2 MCHC 32.8 pg 03/26/2017 Cbc With Differential Ord2 Eos% 1.2 % 03/26/2017 Cbc With Differential Ord2 Baso% 0.3 % 03/26/2017 Cbc With Differential Ord2 PLT 222 K/ul 03/26/2017 Cbc With Differential Ord2 Neut ABS# 3.59 K/ul 03/26/2017 Cbc With Differential Ord2 RDW 14.9 % 03/26/2017 Cbc With Differential Ord2 Lymph ABS# 2.53 K/ul 03/26/2017 Cbc With Differential Ord2 Hunt ABS# 0.6 K/ul 03/26/2017 Cbc With Differential [...] 41.8 % 11/14/2015 Cbc With Differential Ord2 MCV 93.3 fl 11/14/2015 Cbc With Differential Ord2 Lymph% 47.5 % 11/14/2015 Cbc With Differential Ord2 MCH 30.6 pg 11/14/2015 Cbc With Differential Ord2 Hunt% 7.0 % 11/14/2015 Cbc With Differential Ord2 [...] 3.71 K/ul 11/14/2015 Cbc With Differential Ord2 Hunt ABS# 0.6 K/ul 11/14/2015 Cbc With Differential Ord2 Eos ABS# 0.2 K/ul 11/14/2015 Cbc With Differential Ord2 Baso ABS# 0.0 K/ul 11/14/2015 Cbc With Differential Ord2 New Analyzer Notice Please note new ref ranges starting 10-03-2015 due to implemntation of new five part differential hematolgy analyzer. 11/14/2015 Comp Metabolic Bgp375 NA 138 mEq/L 11/14/2015 Comp Metabolic Wkk974 K 4.3 mEq/L 11/14/2015 Comp Metabolic Lur341 CL 105 mEq/L 11/14/2015 Comp Metabolic Lfl407 CO2 23.0 mEq/L 11/14/2015 Comp Metabolic Mtl460 ANION GAP 14 11/14/2015 Comp Metabolic Bwi494 GLUCOSE 93 mg/dL 11/14/2015 Comp Metabolic Gsw282 Creat 1.0 mg/dL 11/14/2015 Comp Metabolic Iuy641 eGFR 78 ml/min/1.73m2 11/14/2015 Comp Metabolic Vty095 BUN 12 mg/dL 11/14/2015 Comp Metabolic Pnz056 B/C Ratio 12.0 Ratio 11/14/2015 Comp Metabolic Mwy188 CALCIUM 9.3 mg/dL 11/14/2015 Comp Metabolic Rxg903 ALK PHOS 48 U/L 11/14/2015 Comp Metabolic Ngd455 AST(SGOT) 18 U/L 11/14/2015 Comp Metabolic Zeo972 ALT(SGPT) 8 U/L 11/14/2015 Comp Metabolic Rmd192 BILI T 1.1 mg/dL 11/14/2015 Comp Metabolic Dym118 ALBUMIN 4.2 g/dL 11/14/2015 Comp Metabolic Dzv883 TPRO 7.0 g/dL 11/14/2015 Comp Metabolic Dwe186 GLOB 2.9 g/dL 11/14/2015 Comp Metabolic Cvp113 A/G Ratio 1.5 Ratio 11/14/2015 Comp Metabolic Dut578 Osmo 275 mOsmo 11/14/2015 Lipid Ord30 CHOL [...] CPT-4: J3301 08/18/2017 THER/PROPH/DIAG INJ SC/IM CPT-4: 11656 08/18/2017 PPPS, SUBSEQ VISIT CPT -4: G0439 03/26/2017 Vital Signs Date Vital 10/16/2017 Blood Pressure 1: 142/72 Code : 8480-6 BMI: 29.1 Code : 62797-2 Heart Rate 1 : 84 bpm Height: 5'10" SpO2: 98% Weight: 203 lbs 08/18/2017 Blood Pressure 1: 140/76 Code : 8480-6 BMI: 29.6 Code : 66846-5 Heart Rate 1 : 82 bpm Height: 5'10" SpO2: 95% Weight: 206 lbs 03/26/2017 Blood Pressure 1: 124/70 Code : 8480-6 BMI: 28.8 Code : 20187-4 Heart Rate 1 : 70 bpm Height: 5'10" SpO2: 98% Weight: 201 lbs 01/03/2016 Blood Pressure 1: 120/78 Code : 8480-6 BMI: 28.8 Code : 32733-5 Heart Rate 1 : 65 bpm Height: 5'10" SpO2: 97% Weight: 201 lbs 11/13/2015 Blood Pressure 1: 144/80 Code : 8480-6 Blood Pressure 1: 152/88 Code: 8480-6 BMI: 28.8 Code: 59156-5 Heart Rate 1: 76 bpm Height: 5'10" [...] data Encounters Encounter Performer Location Codes Date 76829 EST. PATIENT, LEVEL IV Diagnosis: Atypical facial pain[ICD10: G50.1] Diagnosis: Low back pain[ICD10: M54.5] Diagnosis: Headache[ICD10: R51] Diagnosis: Radiculopathy, cervical region[ICD10: M54.12] [facility] CPT-4: 50715 10/16/2017 13796 EST. PATIENT, LEVEL IV Diagnosis: Atypical facial pain[ICD10: G50.1] Diagnosis: Headache[ICD10: R51] [facility] CPT-4: 03244 08/18/2017 ([id number]) 90780 EST. PATIENT, LEVEL III Diagnosis: Essential (primary) hypertension[ICD10: I10] Diagnosis: Low back pain[ICD10: M54.5] [facility] CPT-4: 52005 01/03/2016 OFFICE VISIT, NEW - LEVEL 3 Diagnosis: Radiculopathy, cervical region[ICD10: M54.12] Diagnosis: Low back pain[ICD10: M54.5] Diagnosis: Allergic rhinitis, unspecified[ICD10: J30.9] Diagnosis: Mixed hyperlipidemia[ICD10: E78.2] [facility] CPT-4: 11036 11/13/2015 Plan of Care Planned Activity Notes Codes Status Date Care Plan: Referral Order SNOMED-CT : 084817729 Pending 11/02/2017 Visit Plan: right episcopal/facial pain - will check labs - will start steroid taper - will treat/refer as indicated by labs. Pt is to notify clinic if symptoms do not improve, if they worsen, or with any changes, questions, or concerns. 10/16/2017 Appointment: Maggie Franco WPtel: [address] [place], [place] [phone] (30 min) Complex 10/16/2017 Patient Education: Patient Medication Summary Completed 10/16/2017 Visit Plan: right episcopal/facial pain - will check labs - will give steroid shot today and start steroid taper - will treat/refer as indicated by labs. Pt is to notify clinic if symptoms do not improve, if they worsen, or with any changes, questions, or concerns. 08/18/2017 Visit Plan: right episcopal/facial pain - will check labs - will give steroid shot today and start steroid taper - will treat/refer as indicated by labs. Pt is to notify clinic if symptoms do not improve, if they worsen, or with any changes, questions, or concerns. 08/18/2017 [facility]ment: [facility] [phone] [id number] ([facility] Complex 08/18/2017 Patient Education: [...] care surrogate. 03/26/2017 [facility]ment: [facility] [phone] [id number] [facility] - Annual Wellness Visit 03/26/2017 Patient Education: Patient Medication Summary Completed 03/26/2017 Care Plan: Comp Metabolic Pending 03/26/2017 Care Plan: Cbc With Differential Pending 03/26/2017 Care Plan: Tsh Pending 03/26/2017 Care Plan: Lipid Pending 03/26/2017 Appointment: Salvador [facility] [phone] [id number] (30 min) Complex 02/21/2016 Visit Plan: [...] Referral Appointment Requested Instructions Comment . right episcopal/facial pain - will check labs - will start steroid taper - will treat/refer as indicated by labs. Pt is to notify clinic if symptoms do not improve, if they worsen, or with any changes, questions, or concerns. FLONASE 1 SPRAY EACH NARE DAILY FOR ALLERGY SYMPTOMS [id number]12 [facility]RS BEFORE APPOINTMENT . Neck [...] medications-orders for fasting last provided . right episcopal/facial pain - will check labs - will give steroid shot today and start steroid taper - will treat/refer as indicated by labs. Pt is to notify clinic if symptoms do not improve, if they worsen, or with any changes, questions, or concerns. . right episcopal/facial pain - will check labs - will [...] in blood pressure readings at home. Back cdbz-antoonynf-bkwoyngp physical therapy until released by therapist
--- OUTSIDE RECORDS SUMMARY | 2018-08-18 07:57 | XMS REPORT | Continuity of Care Document ---
Author Author [facility] Organization [facility] Address Unknown Phone Unavailable Allergies There is no data. Medications There is no data. Problems Date Dx Coded Attending Type Code Diagnosis Diagnosed By 12/06/2015 MAVIS VILLARREAL Ot M47.812 Procedures There is no data. Results There is no data. Encounters ACCT No. Visit Date/Time Discharge Status Pt. Type Provider Facility Loc./Unit Complaint [id number] 11/14/2015 09:42:00 11/14/2015 23:59:59 CLS Outpatient MAVIS VILLARREAL [facility] RAD [id number] 08/18/2018 13:30:00 PEN Preadmit BAKARI ROMAN, FELICITY Dunaway [facility] SDC TEMPORAL HEADACHE
--- OUTSIDE RECORDS SUMMARY | 2018-08-18 07:57 | XMS REPORT | CCD ---
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 Name Role Phone PP Unavailable CCM Unavailable Summary Purpose Interface Exchange Insurance Providers Payer name Policy type / Coverage type Covered libertarian ID Effective Begin Date Effective End Date WPS Medicare Part B Medicare Part B [id number] Unknown Unknown Aetna Health and Life Medicare Part B [id number] Unknown Unknown Family history Mother Diagnosis Age At Onset Breast cancer Unknown Arthritis Unknown Father Diagnosis Age At Onset Emphysema Unknown Arthritis Unknown Social History Social History Element Codes Description Effective Dates Marital status Unknown Kristyn 11/13/2015 Number of children Unknown 4 11/13/[address]: 528926336 Never smoker 11/13/[address]: 387694 Currently drinks alcohol 11/13/2015 Frequency of drinks SNOMED CT: 160296283 1-4 drinks per week 1 per week [...] Start Date Stop Date Status Fill Instructions valacyclovir 1 gram tablet RxNorm: 066897 1 Tablet(s) PO TID 10/22/2017 Active prednisone 10 mg tablet RxNorm: 134988 Tablet(s) PO 10/16/2017 No Stop Date Active 6, 5,4,3,2,1 gabapentin 100 mg capsule RxNorm: 502410 1 Capsule(s) PO TID as needed for pain 10/16/2017 10/25/2017 Active prednisone 10 mg tablet RxNorm: 714862 Tablet(s) PO 09/08/2017 10/15/2017 Inactive 6, 5,4,3,2,1 prednisone 10 mg tablet RxNorm: 704535 Tablet(s) PO 08/19/2017 09/07/2017 Inactive 6, 5,4,3,2,1 Kenalog 40 mg/mL suspension for injection RxNorm: 6501026 1.5 Milliliter(s) Inj 08/18/2017 08/18/2017 Inactive Medication Administered Medication Codes Instructions Start Date Status Kenalog 40 mg/mL suspension for injection RxNorm: 5385083 1.5Milliliter 08/18/2017 No longer Active Immunizations Vaccine Codes Date Status Tetanus, Diptheria, Pertussis CVX: 113 completed Tetanus/Diptheria CVX: 113 07/22/2015 completed Assessments Condition Codes Effective Dates Headache ICD-10: R51 ICD-9: 784.0 08/18/2017 Atypical facial pain ICD-10: G50.1 ICD-9: 350.2 08/18/2017 Encounter for general adult medical examination with abnormal findings ICD-10: Z00.01 ICD-9: V70.0 03/26/2017 Low back pain ICD-10: M54.5 ICD-9: 724.2 01/03/2016 Essential (primary) hypertension ICD-10: I10 ICD-9: 401.9 01/03/2016 Allergic rhinitis, unspecified ICD-10: J30.9 ICD-9: 477.9 11/13/2015 Mixed hyperlipidemia ICD-10: E78.2 ICD-9: 272.2 11/13/2015 Radiculopathy, cervical region ICD-10: M54.12 ICD-9: 723.4 11/13/2015 Reason For Visit Reason For Visit Effective Dates Notes headache 08/18/2017 Annual Medicare Wellness Exam 03/26/2017 blood pressure followup 01/03/2016 back pain 11/13/2015 Results Observation Observation Code Item Item Code Result Date Sed Rate Ord21 ESR 32 mm/hr 08/18/2017 C-Reactive Protein Qnt Crqnt CRP 0.4 mg/dl 08/18/2017 Lipid Ord30 CHOL 166 mg/dL 03/26/2017 Lipid Ord30 HDL 38.0 mg/dl 03/26/2017 Lipid Ord30 TRIG 58 mg/dL 03/26/2017 Lipid Ord30 LDL 116 mg/dL 03/26/2017 Lipid Ord30 C/HDL 4.4 Ratio 03/26/2017 Comp Metabolic Jav212 NA 138 mEq/L 03/26/2017 Comp Metabolic Our295 K 4.3 mEq/L 03/26/2017 Comp Metabolic Qqf237 CL 106 mEq/L 03/26/2017 Comp Metabolic Dvx631 CO2 24.0 mEq/L 03/26/2017 Comp Metabolic Pjs587 ANION GAP 12 03/26/2017 Comp Metabolic Lzm707 GLUCOSE 93 mg/dL 03/26/2017 Comp Metabolic Jco180 Creat 1.0 mg/dL 03/26/2017 Comp Metabolic Alo821 eGFR 77 ml/min/1.73m2 03/26/2017 Comp Metabolic Mpn892 BUN 17 mg/dL 03/26/2017 Comp Metabolic Fzg847 B/C Ratio 16.8 Ratio 03/26/2017 Comp Metabolic Bya013 CALCIUM 9.4 mg/dL 03/26/2017 Comp Metabolic Cnd994 ALK PHOS 46 U/L 03/26/2017 Comp Metabolic Xzv190 AST(SGOT) 21 U/L 03/26/2017 Comp Metabolic Ppb405 ALT(SGPT) 11 U/L 03/26/2017 Comp Metabolic Zsp930 BILI T 1.2 mg/dL 03/26/2017 Comp Metabolic Cgs825 ALBUMIN 4.2 g/dL 03/26/2017 Comp Metabolic Vco788 TPRO 7.4 g/dL 03/26/2017 Comp Metabolic Bjk705 GLOB 3.2 g/dL 03/26/2017 Comp Metabolic Evh173 A/G Ratio 1.3 Ratio 03/26/2017 Comp Metabolic Lvv386 Osmo 277 mOsmo 03/26/2017 Tsh Ord6 hTSH [...] 32.0 pg 03/26/2017 Cbc With Differential Ord2 [place]% 8.5 % 03/26/2017 Cbc With Differential Ord2 [...] 2.53 K/ul 03/26/2017 Cbc With Differential Ord2 [place] ABS# 0.6 K/ul 03/26/2017 Cbc With Differential [...] 30.6 pg 11/14/2015 Cbc With Differential Ord2 [place]% 7.0 % 11/14/2015 Cbc With Differential Ord2 [...] 3.71 K/ul 11/14/2015 Cbc With Differential Ord2 [place] ABS# 0.6 K/ul 11/14/2015 Cbc With Differential Ord2 Eos ABS# 0.2 K/ul 11/14/2015 Cbc With Differential Ord2 Baso ABS# 0.0 K/ul 11/14/2015 Cbc With Differential Ord2 New Analyzer Notice Please note new ref ranges starting 10-03-2015 due to implemntation of new five part differential hematolgy analyzer. 11/14/2015 Comp Metabolic Juy717 NA 138 mEq/L 11/14/2015 Comp Metabolic Gvl452 K 4.3 mEq/L 11/14/2015 Comp Metabolic Dkx463 CL 105 mEq/L 11/14/2015 Comp Metabolic Fmc063 CO2 23.0 mEq/L 11/14/2015 Comp Metabolic Fgk282 ANION GAP 14 11/14/2015 Comp Metabolic Xbt475 GLUCOSE 93 mg/dL 11/14/2015 Comp Metabolic Yso075 Creat 1.0 mg/dL 11/14/2015 Comp Metabolic Ihx635 eGFR 78 ml/min/1.73m2 11/14/2015 Comp Metabolic Ohm830 BUN 12 mg/dL 11/14/2015 Comp Metabolic Arp260 B/C Ratio 12.0 Ratio 11/14/2015 Comp Metabolic Ufs440 CALCIUM 9.3 mg/dL 11/14/2015 Comp Metabolic Wzv683 ALK PHOS 48 U/L 11/14/2015 Comp Metabolic Ibh483 AST(SGOT) 18 U/L 11/14/2015 Comp Metabolic Yms701 ALT(SGPT) 8 U/L 11/14/2015 Comp Metabolic Eae944 BILI T 1.1 mg/dL 11/14/2015 Comp Metabolic Tos000 ALBUMIN 4.2 g/dL 11/14/2015 Comp Metabolic Xea190 TPRO 7.0 g/dL 11/14/2015 Comp Metabolic Rle652 GLOB 2.9 g/dL 11/14/2015 Comp Metabolic Qee485 A/G Ratio 1.5 Ratio 11/14/2015 Comp Metabolic Rxp692 Osmo 275 mOsmo 11/14/2015 Lipid Ord30 CHOL 173 mg/dL 11/14/2015 Lipid Ord30 HDL 37.0 mg/dl 11/14/2015 Lipid Ord30 TRIG 65 mg/dL 11/14/2015 Lipid Ord30 LDL 123 mg/dL 11/14/2015 Lipid Ord30 C/HDL 4.7 Ratio 11/14/2015 Tsh Ord6 hTSH II 1.10 uIU/mL 11/14/2015 Total Psa Ord10 PSA 1.48 ng/mL 11/14/2015 Review of Systems System Result Effective Dates Constitutional No recent illness 2016 Constitutional No [...] CPT-4: J3301 08/18/2017 THER/PROPH/DIAG INJ SC/IM CPT-4: 92842 08/18/2017 PPPS, SUBSEQ VISIT CPT -4: G0439 03/26/2017 Vital Signs Date Vital 08/18/2017 Blood Pressure 1: 140/76 Code : 8480-6 BMI: 29.6 Code : 51431-7 Heart Rate 1 : 82 bpm Height: 5'10" SpO2: 95% Weight: 206 lbs 03/26/2017 Blood Pressure 1: 124/70 Code : 8480-6 BMI: 28.8 Code : 49294-6 Heart Rate 1 : 70 bpm Height: 5'10" SpO2: 98% Weight: 201 lbs 01/03/2016 Blood Pressure 1: 120/78 Code : 8480-6 BMI: 28.8 Code : 17520-4 Heart Rate 1 : 65 bpm Height: 5'10" SpO2: 97% Weight: 201 lbs 11/13/2015 Blood Pressure 1: 144/80 Code : 8480-6 Blood Pressure 1: 152/88 Code: 8480-6 BMI: 28.8 Code: 40685-5 Heart Rate 1: 76 bpm Height: 5'10" [...] data Encounters Encounter Performer Location Codes Date 04541 EST. PATIENT, LEVEL IV Diagnosis: Atypical facial pain[ICD10: G50.1] Diagnosis: Headache[ICD10: R51] [facility] CPT-4: 96727 08/18/2017 ([id number]) 07163 EST. PATIENT, LEVEL III Diagnosis: Essential (primary) hypertension[ICD10: I10] Diagnosis: Low back pain[ICD10: M54.5] [facility] CPT-4: 93078 01/03/2016 OFFICE VISIT, NEW - LEVEL 3 Diagnosis: Radiculopathy, cervical region[ICD10: M54.12] Diagnosis: Low back pain[ICD10: M54.5] Diagnosis: Allergic rhinitis, unspecified[ICD10: J30.9] Diagnosis: Mixed hyperlipidemia[ICD10: E78.2] [facility] CPT-4: 09025 11/13/2015 Plan of Care Planned Activity Notes Codes Status Date Appointment: Maggie Franco WPtel: [address] [place], [place] [phone] (30 min) [facility] 08/18/2017 Patient Education: Patient Medication Summary Completed 08/18/2017 Care Plan: Sed Rate Approved 08/18/2017 Care Plan: C-Reactive Protein Qnt Approved 08/18/2017 Appointment: [facility] [phone] [phone] [facility] Annual Wellness Visit 03/26/2017 Patient Education: Patient Medication Summary Completed 03/26/2017 Care Plan: Comp Metabolic Pending 03/26/2017 Care Plan: Cbc With Differential Pending 03/26/2017 Care Plan: Tsh Pending 03/26/2017 Care Plan: Lipid Pending 03/26/2017 [facility]ment[facility] Mgagie [facility] [phone] [phone] (30 min) Complex 02/21/2016 Patient Education: Patient Medication Summary Completed 01/03/2016 Appointment: New Patient 11/13/2015 Patient Education: Patient Medication Summary Completed 11/13/2015 Instructions No Instructions
[2018-08-18 08:20] VITALS: BP 148/92
[2018-08-18] MEDS ORDERED: ceFAZolin 2 GM IV Premixed 50 ML ONE (08:37)
[2018-08-18] MEDS ORDERED: LACTATED RINGERS 1,000 ML IV PRN (08:52)
[2018-08-18] MEDS ORDERED: fentaNYL INJECTION 100 MCG/2 ML AMP ONE (08:55)
[2018-08-18] MEDS ORDERED: MIDAZOLAM 2 MG/2 ML (VERSED) VIAL ONE (08:55)
[2018-08-18] MEDS ORDERED: ceFAZolin 2 GM IV Premixed 50 ML IV ONE (09:00)
--- NOTE | 2018-08-18 09:05 | Progress Note-Pre Operative ---
Pre-Operative Progress Note H&P Reviewed The H&P was reviewed, patient examined and no changes noted. Date Seen by Provider: Aug 09, 2018 Time Seen by Provider: 16:20 Date H&P Reviewed: Aug 18, 2018 Time H&P Reviewed: 09:05 Pre-Operative Diagnosis: Temporal headache FELICITY VILLEGAS MD Aug 18, 2018 09:05
[2018-08-18] MEDS ORDERED: BUP/EPI 0.5% 1:200,000 (SENSORCAINE) 30 ML VIAL ONE (09:20)
[2018-08-18] MEDS ORDERED: DEXAMETHASONE 10 MG/ML (DECADRON) 1 ML VIAL ONE (09:23)
[2018-08-18] MEDS ORDERED: ONDANSETRON 4 MG/2 ML (SDV) Z0FRAN ONE (09:23)
[2018-08-18] MEDS ORDERED: LIDOCAINE PF 2% 5 ML (XYLOCAINE) VIAL ONE (09:24)
[2018-08-18] MEDS ORDERED: SEVOFLURANE (ULTANE) 15 ML INHAL SOLN ONE ×6 (09:24→10:41)
[2018-08-18] MEDS ORDERED: proPOfol 200 MG/20 ML (DIPRIVAN) VIAL IV ONE (09:24)
[2018-08-18] MEDS ORDERED: morphine INJ 10 MG/ML 1ML (SYR OR VIAL) ONE (10:05)
[2018-08-18] MEDS ORDERED: TRAM50TA2 PO (10:53)
--- NOTE | 2018-08-18 10:54 | Discharge Inst-Simple/Standard ---
Discharge Inst-Standard Discharge Medications New, Converted or Re-Newed RX: RX on Chart Patient Instructions/Follow Up Plan of Care/Instructions/FU: dRESSINGS OFF IN 48 HOURS. f/u next , 08/26/18 Activity as Tolerated: Yes Discharge Diet: No Restrictions FELICITY VILLEGAS MD Aug 18, 2018 10:54
[2018-08-18] MEDS ORDERED: morphine INJ 10 MG/ML 1ML (SYR OR VIAL) IVP ONE (11:15)
[2018-08-18] MEDS ORDERED: MEPERIDINE (DEMEROL) INJ 50 MG/ML IVP ONE (11:15)
[2018-08-18] MEDS ORDERED: ONDANSETRON 4 MG/2 ML (SDV) Z0FRAN IVP PRN (11:15)
[2018-08-18 11:45] VITALS: BP 135/82
[2018-08-18 12:15] VITALS: BP 146/81
--- NOTE | 2018-08-18 13:48 | Operative Report ---
Operative Report Date of Procedure/Surgery Aug 18, 2018 Surgeon (s) FELICITY VILLEGAS MD Torch Burner (s): N/A Post-Operative Diagnosis Pending Procedure Performed Bilateral temporal artery biopsy Description of Procedure Anesthesia Type: General Estimated blood loss (mL): Minimal Specimen(s) collected/removed Segment of superficial temporal artery from each side Description of the Procedure Indication for the procedure: This gentleman has been evaluated for temporal headache with visual disturbances of one-year duration. To establish a potential diagnosis of temporal arteritis, it was felt reasonable to perform temporal artery biopsy. Informed consent was obtained after reviewing the procedure in detail. Description of procedure: He was placed supine on the operative table and general anesthesia induced. A gram of Ancef was administered intravenously as prophylaxis against wound infection. Both preauricular regions were prepared and draped in the usual sterile manner. I began procedure on the right side. A 3 cm vertical incision was made anterior to the tragus of the right ear and the superficial temporal artery delineated. Both proximal and distal control was obtained, using 2-0 silk sutures, reinforced with ligaclips. A segment about 8 mm in length was excised and sent for histologic examination. The incision was then closed using 4-0 Vicryl in 2 layers, in a subcuticular fashion. 0.5 percent Marcaine with epinephrine was infiltrated along the incision at the end of the operation. A similar procedure was repeated on the left side. Steri-Strips and nonadherent dressings were then applied. He tolerated the procedure well, was extubated in the operating room and taken to the recovery room in a stable condition. Findings of the Procedure See operative report Allergies and Home Medications Allergies Coded Allergies: No Known Drug Allergies (Unverified , 08/16/18) Home Medications Tramadol HCl 50 Mg Tablet, 50 MG PO Q12H PRN for PAIN-MILD TO MODERATE Prescribed by: FELICITY VILLEGAS on 08/18/18 1052 Patient Home Medication List Home Medication List Reviewed: Yes FELICITY VILLEGAS MD Aug 18, 2018 13:48
== END 2018-08-18 12:33 | disposition home or self-care (01) ==
LOC: SDC 07:50
PROVIDERS: ATTEND Surgery
DX: R51 Headache (principal); H54.7 Unspecified visual loss; Z11.2 Encounter for screening for other bacterial diseases
CPT/HCPCS: 87081

== ENCOUNTER → 2020-02-03 | Outpatient (CLI) | payer MEDICARE, OTHER ==
[~2020-02-03] MED LIST: TRM50T PO
== END | disposition home or self-care (01) ==
LOC: LABNPT 09:30
PROVIDERS: ATTEND Neurological Surgery
DX: Z11.59 Encounter for screening for other viral diseases (principal); G50.0 Trigeminal neuralgia
CPT/HCPCS: 87635

== ENCOUNTER → 2020-08-21 | Outpatient (CLI) | payer MEDICARE, OTHER ==
--- NOTE | 2020-08-21 17:24 | Diagnostic Imaging Report ---
HISTORY: Bilateral hip pain. TECHNIQUE: Frontal view of the pelvis. Frontal and lateral views of the bilateral hips. COMPARISON: None FINDINGS: No acute fracture is seen in the bilateral hips. There are mild degenerative changes in the hip joints bilaterally. There are postsurgical changes and advanced degenerative changes in the lower lumbar spine. There is degenerative change in the bilateral sacroiliac joints. IMPRESSION: 1. 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 Dictated by: Dictated on workstation # [id number]
== END ==
LOC: RAD 13:21
PROVIDERS: ATTEND Family Medicine
DX: M51.36 Other intervertebral disc degeneration, lumbar region (principal); M16.0 Bilateral primary osteoarthritis of hip
CPT/HCPCS: 73523

== ENCOUNTER → 2020-11-28 | Outpatient (CLI) | payer MEDICARE, OTHER ==
[2020-11-28 09:13] LABS: ABSOLUTE RETIC # 64 10e9/uL (24-90); BASOPHILS % (AUTO) 0 % (0-10); EOSINOPHILS # (AUTO) 0.2 10^3/uL (0.0-0.3); EOSINOPHILS % (AUTO) 2 % (0-10); HEMATOCRIT 37 % (40-54); HEMOGLOBIN 11.9 g/dL (13.3-17.7); LYMPHOCYTES # (AUTO) 3.4 10^3/uL (1.0-4.0); LYMPHOCYTES % (AUTO) 51 % (12-44); MEAN CORPUSCULAR HEMOGLOBIN 32 pg (25-34); MEAN CORPUSCULAR HGB CONC 33 g/dL (32-36); MEAN CORPUSCULAR VOLUME 97 fL (80-99); MEAN PLATELET VOLUME 9.5 fL (9.0-12.2); MONOCYTES # (AUTO) 0.5 10^3/uL (0.0-1.0); MONOCYTES % (AUTO) 7 % (0-12); NEUTROPHILS # (AUTO) 2.6 10^3/uL (1.8-7.8); NEUTROPHILS % (AUTO) 39 % (42-75); PLATELET COUNT 181 10^3/uL (130-400); WHITE BLOOD COUNT 6.7 10^3/uL (4.3-11.0)
[2020-11-28 10:51] LABS: ANISOCYTOSIS SLIGHT; EOSINOPHILS % (MANUAL) 2 %; LYMPHOCYTES % (MANUAL) 54 %; MONOCYTES % (MANUAL) 5 %; NEUTROPHILS % (MANUAL) 38 %
== END ==
LOC: LAB 08:52
PROVIDERS: ATTEND Family Medicine
DX: D64.9 Anemia, unspecified (principal); R68.89 Other general symptoms and signs
CPT/HCPCS: 36415; 85007; 85027; 85045; 85055

== ENCOUNTER 2021-10-14 10:11 | Outpatient (CLI) | payer MEDICARE, OTHER ==
[~2021-10-14] VITALS: Ht 177.8 cm; Wt 86.0 kg
[2021-10-14 10:22] VITALS: BP 150/80
[2021-10-14] MEDS ORDERED: CASIRIVIMAB/IMDEVIMAB 1,200 MG in NS (IVPB) 50 ML IV ONE (10:30)
[2021-10-14] MEDS ORDERED: ACETAMINOPHEN 500 MG TAB (TYLENOL) PO PRN (10:30)
[2021-10-14] MEDS ORDERED: diphenhydrAMINE 50 MG/ML INJ (BENADRYL) IV PRN (10:30)
[2021-10-14] MEDS ORDERED: EPINEPHrine INJECTION 1 MG/ML AMP IM PRN (10:30)
[2021-10-14] MEDS ORDERED: ONDANSETRON 4 MG/2 ML (SDV) Z0FRAN IV PRN (10:30)
[2021-10-14 11:30] VITALS: BP 135/80
== END 2021-10-14 11:55 | disposition home or self-care (01) ==
LOC: INFUSION 10:11
PROVIDERS: ATTEND Nurse Practitioner Family
DX: U07.1 COVID-19 (principal)

== ENCOUNTER → 2022-01-20 | Outpatient (CLI) | payer MEDICARE, OTHER ==
[2022-01-20 12:53] LABS: ABSOLUTE RETIC # 87 10e9/uL (24-90); BASOPHILS % (AUTO) 1 % (0-10); EOSINOPHILS # (AUTO) 0.1 10^3/uL (0.0-0.3); EOSINOPHILS % (AUTO) 2 % (0-10); HEMATOCRIT 33 % (40-54); HEMOGLOBIN 10.1 g/dL (13.3-17.7); LYMPHOCYTES # (AUTO) 2.7 10^3/uL (1.0-4.0); LYMPHOCYTES % (AUTO) 47 % (12-44); MEAN CORPUSCULAR HEMOGLOBIN 30 pg (25-34); MEAN CORPUSCULAR HGB CONC 31 g/dL (32-36); MEAN CORPUSCULAR VOLUME 97 fL (80-99); MEAN PLATELET VOLUME 9.1 fL (9.0-12.2); MONOCYTES # (AUTO) 0.5 10^3/uL (0.0-1.0); MONOCYTES % (AUTO) 8 % (0-12); NEUTROPHILS # (AUTO) 2.4 10^3/uL (1.8-7.8); NEUTROPHILS % (AUTO) 42 % (42-75); PLATELET COUNT 296 10^3/uL (130-400); WHITE BLOOD COUNT 5.8 10^3/uL (4.3-11.0)
[2022-01-20 13:26] LABS: EOSINOPHILS % (MANUAL) 2 %; HYPOCHROMASIA SLIGHT; LYMPHOCYTES % (MANUAL) 41 %; MONOCYTES % (MANUAL) 7 %; NEUTROPHILS % (MANUAL) 50 %; POLYCHROMASIA SLIGHT
[2022-01-20 13:27] LABS: ANISOCYTOSIS SLIGHT
== END ==
LOC: LAB 11:33
PROVIDERS: ATTEND Nurse Practitioner Family
DX: D64.9 Anemia, unspecified (principal)
CPT/HCPCS: 36415; 85007; 85027; 85045; 85055

== ENCOUNTER 2022-02-25 09:45 | Outpatient (RCR) | payer MEDICARE, OTHER ==
[2022-02-25 10:55] LABS: ABSOLUTE RETIC # 85 10e9/uL (24-90); BASOPHILS % (AUTO) 1 % (0-10); EOSINOPHILS % (AUTO) 1 % (0-10); HEMATOCRIT 36 % (40-54); HEMOGLOBIN 11.2 g/dL (13.3-17.7); LYMPHOCYTES # (AUTO) 3.1 10^3/uL (1.0-4.0); LYMPHOCYTES % (AUTO) 40 % (12-44); MEAN CORPUSCULAR HEMOGLOBIN 30 pg (25-34); MEAN CORPUSCULAR HGB CONC 32 g/dL (32-36); MEAN CORPUSCULAR VOLUME 95 fL (80-99); MEAN PLATELET VOLUME 9.6 fL (9.0-12.2); MONOCYTES # (AUTO) 0.8 10^3/uL (0.0-1.0); MONOCYTES % (AUTO) 10 % (0-12); NEUTROPHILS # (AUTO) 3.7 10^3/uL (1.8-7.8); NEUTROPHILS % (AUTO) 47 % (42-75); PLATELET COUNT 204 10^3/uL (130-400); RETICULOCYTE % 2.27 % (0.50-2.40); WHITE BLOOD COUNT 7.8 10^3/uL (4.3-11.0)
[2022-02-25 11:27] LABS: ALANINE AMINOTRANSFERASE 9 U/L (0-55); ALBUMIN 4.6 GM/DL (3.2-4.5); ALKALINE PHOSPHATASE 42 U/L (40-136); BILIRUBIN,TOTAL 0.9 MG/DL (0.1-1.0); BUN/CREATININE RATIO 16; CALCIUM 9.7 MG/DL (8.5-10.1); CARBON DIOXIDE 22 MMOL/L (21-32); CHLORIDE 106 MMOL/L (98-107); CREATININE SERUM 1.08 MG/DL (0.60-1.30); GFR ESTIMATED 70; GLUCOSE 95 MG/DL (70-105); POTASSIUM 4.1 MMOL/L (3.6-5.0); SODIUM 141 MMOL/L (135-145); TOTAL PROTEIN 8.2 GM/DL (6.4-8.2)
== END 2022-03-20 | disposition home or self-care (01) ==
LOC: ONC 09:45
PROVIDERS: ATTEND Internal Medicine Hematology & Oncology
DX: D64.9 Anemia, unspecified (principal)
CPT/HCPCS: 80053; 82607; 82728; 82746; 83540; 83550; 83615; 85025; 85045; G0463; 36415; 99214

== ENCOUNTER 2022-04-02 06:17 | Outpatient (CLI) | payer MEDICARE, OTHER ==
[~2022-04-02] VITALS: Ht 177.8 cm; Wt 85.0 kg
== END 2022-04-02 15:14 | disposition home or self-care (01) ==
LOC: PREOP 06:17
PROVIDERS: ATTEND Surgery
DX: Z01.818 Encounter for other preprocedural examination (principal)

== ENCOUNTER 2022-04-15 08:53 | Day surgery (SDC) | payer MEDICARE, OTHER ==
[~2022-04-15] VITALS: Ht 178 cm; Wt 85.0 kg
[2022-04-15] MEDS ORDERED: LACTATED RINGERS 1,000 ML IV STA (09:00)
[2022-04-15] MEDS ORDERED: HURRICAINE EXT TUBE (BENZOCAINE) XX PRN (09:00)
[2022-04-15] MEDS ORDERED: LACTATED RINGERS 1,000 ML IV ONE (09:12)
[2022-04-15 09:15] VITALS: BP 148/83
[2022-04-15] MEDS ORDERED: MIDAZOLAM 2 MG/2 ML (VERSED) VIAL ONE (11:23)
[2022-04-15] MEDS ORDERED: PROPOFOL INJECTION 50 ML IV ONE ×2 (11:23→11:59)
[2022-04-15] MEDS ORDERED: PHENYLEPHRINE 100 MCG/ML 10 ML (ANESTHESIA) SYR ONE (12:13)
[2022-04-15 12:15] VITALS: BP 59/39
--- NOTE | 2022-04-15 12:17 | Progress Note-Post Operative ---
Post-Operative Progess Note Surgeon (s)/Lockstitch Collar Setter (s) Surgeon LIZZY BUCIO DO Lockstitch Collar Setter: na Pre-Operative Diagnosis fe def anemia Post-Operative Diagnosis rectal polyp, gastric polyp Procedure & Operative Findings Date of Procedure 04/15/22 Procedure Performed/Findings egd c biopsies, colonoscopy c hot bx polypectomy Anesthesia Type per membership sales manager Estimated Blood Loss Estimated blood loss (mL): none Specimens/Packing Specimens Removed antrum, ge, rectal polyp LIZZY BUCIO DO Apr 15, 2022 12:17
--- NOTE | 2022-04-15 12:19 | Discharge Inst-Simple/Standard ---
Discharge Inst-Standard Patient Instructions/Follow Up Plan of Care/Instructions/FU: 2 weeks yandy Activity as Tolerated: Yes Discharge Diet: Regular Diet LIZZY BUCIO DO Apr 15, 2022 12:19
[2022-04-15 12:20] VITALS: BP 89/53
[2022-04-15 12:25] VITALS: BP 92/53
--- NOTE | 2022-04-15 12:25 | Anesthesia-General Post-Op ---
MAC Patient Condition Mental Status/LOC: Same as Preop Cardiovascular: Satisfactory Nausea/Vomiting: Absent Respiratory: Satisfactory Pain: Controlled Complications: Absent Post Op Complications Complications None Follow Up Care/Instructions Patient Instructions None needed. Anesthesiology Discharge Order Discharge Order Patient is doing well, no complaints, stable vital signs, no apparent adverse anesthesia problems. No complications reported per nursing. CAM HILTON CRNA Apr 15, 2022 12:25
[2022-04-15 12:29] VITALS: BP 108/63
[2022-04-15 12:50] VITALS: BP 123/69
--- NOTE | 2022-04-15 20:24 | OPERATIVE REPORT ---
DATE OF SERVICE: 04/15/2022 PREOPERATIVE DIAGNOSIS: Iron deficiency anemia. POSTOPERATIVE DIAGNOSES: Rectal polyp, gastric polyp. PROCEDURES: EGD with biopsies, colonoscopy with hot biopsy polypectomy x1. SURGEON: Lizzy Page DO ANESTHESIA: Per ELECTROSTATIC PAINT OPERATOR. ESTIMATED BLOOD LOSS: None. COMPLICATIONS: None. SPECIMENS: Antrum, GE junction and rectal polyp. INDICATIONS: The patient is a 76-year-old male with iron deficiency anemia, referred for endoscopy. He understands risks and benefits of procedure and wishes to proceed. Consent was signed in the chart. DESCRIPTION OF PROCEDURE: The patient was taken to the endoscopy suite, placed in left lateral recumbent position. Timeout was performed. Scope was inserted in mouth, down the esophagus, stomach and into the duodenum without difficulty. There were no polyps, masses or ulcerations within the duodenum. Scope was slowly retracted back into the stomach where it was further insufflated. One small polyp and one smooth contour, may be submucosal lipoma present, both benign appearing. Biopsy of the antrum was obtained. Scope was retroflexed noting no other pathology. Scope was returned to its normal position, slowly withdrawn to distal esophagus. No polyps, masses or ulcerations. Biopsy of the GE junction was obtained. Scope was slowly retracted back into the esophagus until completely removed, noting no other pathology. Digital rectal exam was performed. No palpable polyps, masses or ulcerations. Scope was inserted into the rectum, advanced all the way to cecum with minimal difficulty. Prep requiring lots of irrigation and suction, but adequate visualization. Scope was then slowly retracted back. No polyps, masses or ulcerations in the cecum, ascending, transverse, descending and sigmoid colon. Once in the rectum, a small polyp was present, which hot biopsy polypectomy was performed. Scope was inserted and retracted multiple times, noting no other pathology. Scope was slowly retracted until completely removed. The patient tolerated the procedure well. RECOMMENDATIONS: The patient will follow up on biopsies. If continues to have iron deficiency anemia, we will consider capsule endoscopy for further evaluation. Does not need any further colonoscopies unless warranted by symptomatology. Job ID: [id number] DocumentID: [id number] Dictated Date: 04/15/2022 12:21:47 Produce Manager Date: 04/15/2022 20:23:25 Dictated By: LIZZY PAGE DO
== END 2022-04-15 13:05 | disposition home or self-care (01) ==
LOC: ENDO 08:53
PROVIDERS: ATTEND Surgery
DX: K29.50 Unspecified chronic gastritis without bleeding (principal); K21.00 Gastro-esophageal reflux disease with esophagitis, without bleeding; D12.8 Benign neoplasm of rectum; K62.1 Rectal polyp; D50.9 Iron deficiency anemia, unspecified
CPT/HCPCS: 88305